=== PATIENT | male | born 1955 | race Caucasian/White ===

== ENCOUNTER 2020-09-28 06:20 | Outpatient (REF) | payer OTHER, SELFPAY ==
[2020-09-28 11:48] LABS: Alanine Aminotransferase 39 U/L (0-40); Albumin Level 4.2 g/dL (3.5-5.0); Alkaline Phosphatase 68 U/L (39-117); Anion Gap 14 (12-20); Aspartate Amino Transferase 25 U/L (5-37); Bilirubin Total 0.5 mg/dL (0.0-1.0); Blood Urea Nitrogen 15 mg/dL (9-16); Calcium 9.2 mg/dL (8.4-10.2); Carbon Dioxide 27 mmol/L (22-29); Chloride 106 mmol/L (96-108); Cholesterol 219 mg/dL; Estimated Glomerular Filt Rate > 60; Glucose Fasting 89 mg/dL (60-99); HDL Cholesterol 54 mg/dL; LDL Cholesterol Calculated 142 mg/dl; Potassium 4.6 mmol/L (3.3-5.1); Sodium 142 mmol/L (135-145); Total Protein 6.8 g/dL (6.5-8.0); Triglycerides 119 mg/dL
[2020-09-28 12:31] LABS: Free T4 (Free Thyroxine) 1.02 ng/dL (0.71-1.85); Prostate Specific Antigen Scr 0.53 ng/mL (<0.05-4.0)
== END 2020-09-28 06:21 | disposition home or self-care (01) ==
LOC: HO.HMGCLDS 06:20
PROVIDERS: PCP Nurse Practitioner Family; Visit Provider Nurse Practitioner Family
DX: Z12.5 Encounter for screening for malignant neoplasm of prostate (principal); E03.9 Hypothyroidism, unspecified; E78.5 Hyperlipidemia, unspecified
CPT/HCPCS: 36415; 80053; 80061; 84153; 84439; 84443

== ENCOUNTER 2020-10-02 06:35 | Outpatient (REF) | payer OTHER, SELFPAY ==
--- NOTE | ~2020-10-02 | CT_ITS ---
EXAMINATION: CT ABDOMEN AND PELVIS WITH CONTRAST CLINICAL INFORMATION: Umbilical hernia COMPARISON: Chest CT August 2018 TECHNIQUE: Multidetector volumetric images were obtained from the superior aspect of the liver through the pubic symphysis following administration 85 mL of Omnipaque 350 intravenous contrast. Sagittal and coronal reformatted images were obtained on the technologist's workstation. Oral contrast: Yes This CT examination was performed using dose optimization techniques as appropriate, variously including the following: *Automated exposure control *Adjustment of mA and/or kV according to patient size (this includes techniques or standardized protocols for targeted exams where dose is matched to indication/reason for exam; i.e. extremities or head) *Use of iterative reconstruction technique DLP: 514 mGy-cm FINDINGS: LUNG BASES: The visualized lung bases are clear. There is elevation of the right hemidiaphragm. This is similar to previous chest CT. LIVER, GALLBLADDER, AND BILIARY TREE: The liver is normal in size, shape, and attenuation. No focal hepatic lesion or biliary ductal dilatation is present. The gallbladder is unremarkable with no evidence of radiopaque gallstones, gallbladder wall thickening, or obvious pericholecystic inflammatory changes. PANCREAS: Unremarkable. SPLEEN: Unremarkable. ADRENAL GLANDS: Unremarkable. KIDNEYS AND URETERS: The kidneys are normal in size, shape, and attenuation. No hydronephrosis, hydroureter, or calculi seen. No perinephric stranding. BLADDER: Unremarkable. GASTROINTESTINAL TRACT: The small and large bowel are unremarkable. The appendix is not identified. ABDOMINAL WALL: There is diastasis of the rectus muscles. No definite hernia is seen. LYMPH NODES: Normal. VASCULAR: Unremarkable. PELVIC VISCERA: Unremarkable. OSSEOUS STRUCTURES: Unremarkable. CT/CT abdomen pelvis w con IMPRESSION: Diastasis of the rectus muscles. No hernia seen. Elevated right hemidiaphragm similar to previous chest CT.
[2020-10-02] MEDS: iohexoL 350 MG/ML 100 ML INFUS..BTL IV (09:01)
[2020-10-02] MEDS: Barium Sulfate Oral (Mocha) 450 ML ORAL.SUSP 900 ML PO (09:02)
== END 2020-10-02 06:36 | disposition home or self-care (01) ==
LOC: HO.CT 06:35
PROVIDERS: PCP Nurse Practitioner Family; Visit Provider Nurse Practitioner Family
DX: K42.9 Umbilical hernia without obstruction or gangrene (principal); K40.90 Unilateral inguinal hernia, without obstruction or gangrene, not specified as recurrent
CPT/HCPCS: 74177; Q9967

== ENCOUNTER → 2020-10-03 13:05 | Outpatient (BNVA) | payer OTHER, SELFPAY | PROVIDERS: PCP Nurse Practitioner Family; Referring Provider Nurse Practitioner Family; Visit Provider Nurse Practitioner Family ==

== ENCOUNTER 2020-10-04 06:05 | Outpatient (REF) | payer OTHER, SELFPAY ==
[2020-10-04 12:01] LABS: C Reactive Protein 0.13 mg/dL (< or = 0.50)
[2020-10-09 14:21] LABS: Transglutaminase Ab IgG 5 U/mL; Transglutaminase IgA 1 U/mL
== END 2020-10-04 06:06 | disposition home or self-care (01) ==
LOC: HO.HMGCLDS 06:05
PROVIDERS: PCP Nurse Practitioner Family; Visit Provider Nurse Practitioner Family
DX: R14.0 Abdominal distension (gaseous) (principal); R19.7 Diarrhea, unspecified
CPT/HCPCS: 36415; 83516; 86140

== ENCOUNTER 2021-05-01 06:05 | Outpatient (REF) | payer OTHER, SELFPAY ==
[2021-05-01 11:26] LABS: MANUAL DIFF FLAG NO
[2021-05-01 11:32] LABS: Basophils Percent Auto 0.7 % (0-2); Eosinophils Absolute Auto 0.1 X10*3/uL (0.0-0.4); Eosinophils Percent Auto 1.3 % (0-4); Hematocrit 48.2 % (42.0-52.0); Hemoglobin 16.1 g/dl (14.0-18.0); Imm Gran Abs Auto 0.02 X10*3/uL (0.00-0.03); Imm Gran Pct Auto 0.4 % (0.0-0.4); Lymphocytes Absolute Auto 2.3 X10*3/uL (1.2-4.9); Lymphocytes Percent Auto 40.5 % (20-40); Mean Corpuscular HGB Conc 33.4 g/dl (31.0-36.0); Mean Corpuscular Hemoglobin 32.3 pg (27.0-33.0); Mean Corpuscular Volume 96.6 fL (80.0-98.0); Mean Platelet Volume 11.2 fL (9.4-12.4); Monocytes Absolute Auto 0.5 X10*3/uL (0.1-1.2); Neutrophils Absolute Auto 2.8 x10*3/uL (2.0-8.3); Neutrophils Percent Auto 49.1 % (45-73); Platelet Count 263 X10*3/uL (160-400); Red Blood Count 4.99 X10*6/uL (4.60-5.80); Red Cell Distribution Width 12.7 % (11.0-16.0); White Blood Count 5.6 X10*3/uL (4.8-10.8)
[2021-05-01 11:35] LABS: Appearance Urine CLEAR; Color Urine YELLOW; Glucose Urine UA NEG (NEG); Leukocyte Esterase Urine NEG (NEG); Nitrite Urine NEG (NEG); PH 6.5 (5.0-8.0); Specific Gravity - Urine 1.025 (1.005-1.025); Urine Blood NEG (NEG); Urine Ketones NEG (NEG); Urine Protein NEG (NEG-TRACE)
[2021-05-01 11:55] LABS: Alanine Aminotransferase 36 U/L (0-40); Albumin Level 4.1 g/dL (3.5-5.0); Alkaline Phosphatase 50 U/L (39-117); Anion Gap 10 (12-20); Aspartate Amino Transferase 30 U/L (5-37); Bilirubin Total 0.6 mg/dL (0.0-1.0); Blood Urea Nitrogen 14 mg/dL (9-16); Calcium 8.9 mg/dL (8.4-10.2); Carbon Dioxide 30 mmol/L (22-29); Chloride 104 mmol/L (96-108); Cholesterol 271 mg/dL; Estimated Glomerular Filt Rate 59; Glucose Fasting 95 mg/dL (60-99); HDL Cholesterol 64 mg/dL; Iron 109 mcg/dL (45-160); LDL Cholesterol Calculated 181 mg/dl; Percent Iron Saturation 29 % (15-50); Potassium 4.4 mmol/L (3.3-5.1); Sodium 140 mmol/L (135-145); Total Iron Binding Capacity 380 mcg/dL (228-428); Triglycerides 131 mg/dL; Unsaturated Iron Binding 271 ug/dL
[2021-05-01 12:04] LABS: TSH reflex Free T4 46.32 uIU/mL (0.32-4.0)
[2021-05-01 12:35] LABS: Free T4 (Free Thyroxine) 0.48 ng/dL (0.71-1.85)
[2021-05-01 12:57] LABS: Folate 14.6 ng/mL (> or = 4.0); Vitamin B12 529 pg/mL (200-900)
== END 2021-05-01 06:06 | disposition home or self-care (01) ==
LOC: HO.HMGCLDS 06:05
PROVIDERS: PCP Nurse Practitioner Family; Visit Provider Nurse Practitioner Family
DX: E78.5 Hyperlipidemia, unspecified (principal); E03.9 Hypothyroidism, unspecified; R53.83 Other fatigue
CPT/HCPCS: 36415; 80053; 80061; 81003; 82607; 82746; 83540; 84439; 84443; 85025

== ENCOUNTER 2021-10-15 06:05 | Outpatient (REF) | payer OTHER, SELFPAY ==
[2021-10-15 12:00] LABS: Alanine Aminotransferase 36 U/L (0-40); Albumin Level 4.4 g/dL (3.5-5.0); Alkaline Phosphatase 57 U/L (39-117); Anion Gap 11 (12-20); Aspartate Amino Transferase 31 U/L (5-37); Bilirubin Total 0.6 mg/dL (0.0-1.0); Blood Urea Nitrogen 13 mg/dL (9-16); Carbon Dioxide 27 mmol/L (22-29); Chloride 103 mmol/L (96-108); Estimated Glomerular Filt Rate 58; Glucose Random 107 mg/dL (60-115); Potassium 4.4 mmol/L (3.3-5.1); Sodium 137 mmol/L (135-145); Total Protein 7.4 g/dL (6.5-8.0)
[2021-10-15 12:02] LABS: TSH reflex Free T4 49.62 uIU/mL (0.32-4.0)
[2021-10-15 12:38] LABS: Free T4 (Free Thyroxine) 0.57 ng/dL (0.71-1.85)
== END 2021-10-15 06:06 | disposition home or self-care (01) ==
LOC: HO.HMGCLDS 06:05
PROVIDERS: Visit Provider Nurse Practitioner Family
DX: E03.9 Hypothyroidism, unspecified (principal)
CPT/HCPCS: 36415; 80053; 84439; 84443

== ENCOUNTER 2022-07-14 06:02 | Outpatient (REF) | payer OTHER, SELFPAY ==
[2022-07-14 11:12] LABS: MANUAL DIFF FLAG NO
[2022-07-14 11:22] LABS: Appearance Urine Clear; Color Urine Yellow; Glucose Urine UA Negative (Negative); Leukocyte Esterase Urine Negative (Negative); Nitrite Urine Negative (Negative); PH 6.5 (5.0-9.0); Specific Gravity - Urine 1.025 (1.005-1.025); Urine Blood Negative (Negative); Urine Ketones Negative (Negative); Urine Protein Negative (Neg-Trace)
[2022-07-14 11:26] LABS: Basophils Absolute Auto 0.1 X10*3/uL (0.0-0.2); Basophils Percent Auto 0.8 % (0-2); Eosinophils Absolute Auto 0.1 X10*3/uL (0.0-0.4); Eosinophils Percent Auto 1.3 % (0-4); Hematocrit 44.6 % (42.0-52.0); Hemoglobin 15.1 g/dl (14.0-18.0); Imm Gran Abs Auto 0.04 X10*3/uL (0.00-0.03); Imm Gran Pct Auto 0.7 % (0.0-0.4); Lymphocytes Absolute Auto 2.7 X10*3/uL (1.2-4.9); Lymphocytes Percent Auto 44.3 % (20-40); Mean Corpuscular HGB Conc 33.9 g/dl (31.0-36.0); Mean Corpuscular Hemoglobin 31.3 pg (27.0-33.0); Mean Corpuscular Volume 92.3 fL (80.0-98.0); Mean Platelet Volume 11.4 fL (9.4-12.4); Monocytes Absolute Auto 0.5 X10*3/uL (0.1-1.2); Monocytes Percent Auto 8.5 % (2-11); Neutrophils Absolute Auto 2.7 x10*3/uL (2.0-8.3); Neutrophils Percent Auto 44.4 % (45-73); Platelet Count 250 X10*3/uL (160-400); Red Blood Count 4.83 X10*6/uL (4.60-5.80); Red Cell Distribution Width 13.2 % (11.0-16.0)
[2022-07-14 12:00] LABS: Alanine Aminotransferase 50 U/L (0-40); Albumin Level 4.4 g/dL (3.5-5.0); Alkaline Phosphatase 57 U/L (39-117); Anion Gap 11 (12-20); Aspartate Amino Transferase 29 U/L (5-37); Bilirubin Total 0.6 mg/dL (0.0-1.0); Blood Urea Nitrogen 15 mg/dL (9-16); Calcium 9.2 mg/dL (8.4-10.2); Carbon Dioxide 27 mmol/L (22-29); Chloride 109 mmol/L (96-108); Cholesterol 332 mg/dL; Estimated Glomerular Filt Rate 60; Glucose Fasting 102 mg/dL (60-99); HDL Cholesterol 59 mg/dL; LDL Cholesterol Calculated 231 mg/dl; Potassium 4.4 mmol/L (3.3-5.1); Sodium 143 mmol/L (135-145); Total Protein 7.2 g/dL (6.5-8.0); Triglycerides 213 mg/dL
[2022-07-14 12:01] LABS: Prostate Specific Antigen Scr 0.45 ng/mL (<0.05-4.0)
[2022-07-14 12:46] LABS: Free T4 (Free Thyroxine) 0.66 ng/dL (0.71-1.85)
== END 2022-07-14 06:03 | disposition home or self-care (01) ==
LOC: HO.HMGCLDS 06:02
PROVIDERS: PCP Nurse Practitioner Family; Visit Provider Nurse Practitioner Family
DX: Z00.00 Encounter for general adult medical examination without abnormal findings (principal); Z12.5 Encounter for screening for malignant neoplasm of prostate; E78.5 Hyperlipidemia, unspecified; E03.9 Hypothyroidism, unspecified
CPT/HCPCS: 36415; 80053; 80061; 81003; 84153; 84439; 84443; 85025

== ENCOUNTER 2022-07-25 10:23 | Outpatient (REF) | payer OTHER, SELFPAY ==
--- NOTE | ~2022-07-25 | US_ITS ---
EXAMINATION: US ABDOMEN COMPLETE CLINICAL INFORMATION: Abnormal levels of other serum enzymes. COMPARISON: CT abdomen and pelvis 10/02/2020. TECHNIQUE: Real-time imaging of the abdominal viscera. FINDINGS: PANCREAS: Normal. ABDOMINAL AORTA: The proximal, mid, and distal segments are normal in caliber. INFERIOR VENA CAVA: Visualized portions are normal. LIVER: The liver is normal in size. The liver contour is normal. There is diffuse increased liver parenchymal echogenicity, consistent with infiltrative hepatocellular disease. No focal hepatic lesion. There is no intrahepatic biliary duct dilatation seen. GALLBLADDER: Normal. The gallbladder is physiologically distended without evidence of stones, sludge, polyps, wall thickening or pericholecystic fluid. COMMON BILE DUCT: Normal in caliber measuring 0.4 cm in diameter. RIGHT KIDNEY: Normal. No hydronephrosis. No renal calculi or focal parenchymal lesions. The kidney measures 11.3 cm in maximum dimension. LEFT KIDNEY: Normal. No hydronephrosis. No renal calculi or focal parenchymal lesions. The kidney measures 10.3 cm in maximum dimension. SPLEEN: Normal. The spleen measures 9.4 cm in maximum dimension. FREE FLUID: None. US/US abdomen complete IMPRESSION: Increased hepatic echogenicity which can be seen in the setting of hepatic steatosis or underlying liver disease.
== END 2022-07-25 10:24 | disposition home or self-care (01) ==
LOC: HO.HMGCX 10:23
PROVIDERS: PCP Nurse Practitioner Family; Visit Provider Nurse Practitioner Family
DX: R74.8 Abnormal levels of other serum enzymes (principal)
CPT/HCPCS: 76700

== ENCOUNTER 2022-10-18 06:48 | Outpatient (REF) | payer OTHER, SELFPAY ==
[2022-10-18 11:37] LABS: Alanine Aminotransferase 56 U/L (0-40); Albumin Level 4.3 g/dL (3.5-5.0); Alkaline Phosphatase 59 U/L (39-117); Anion Gap 16 (12-20); Aspartate Amino Transferase 30 U/L (5-37); Bilirubin Total 0.6 mg/dL (0.0-1.0); Blood Urea Nitrogen 13 mg/dL (9-16); Calcium 9.2 mg/dL (8.4-10.2); Carbon Dioxide 22 mmol/L (22-29); Chloride 104 mmol/L (96-108); Cholesterol 321 mg/dL; Estimated Glomerular Filt Rate > 60; Glucose Fasting 116 mg/dL (60-99); HDL Cholesterol 61 mg/dL; LDL Cholesterol Calculated 204 mg/dl; Potassium 4.1 mmol/L (3.3-5.1); Sodium 138 mmol/L (135-145); Total Protein 7.3 g/dL (6.5-8.0); Triglycerides 280 mg/dL
[2022-10-18 11:53] LABS: TSH reflex Free T4 39.57 uIU/mL (0.32-4.0)
[2022-10-18 12:28] LABS: Free T4 (Free Thyroxine) < 0.42 ng/dL (0.71-1.85)
[2022-10-20 05:05] LABS: HBc Num1 0.09 S/CO (0.00-0.79); HBsAGNum1 0.29 S/CO (0.00-0.99); Hepatitis A Antibody IgM 0.14 Index (0-0.79); Hepatitis B Core Antibody Nonreactive (Nonreactive); Hepatitis B Surface Antigen Negative (Negative); ~HepC Num1 0.12 S/CO (0.00-0.79); ~Hepatitis A Antibody IgM Nonreactive (Nonreactive); ~Hepatitis C Antibody Nonreactive (Nonreactive)
[2022-10-20 05:50] LABS: ~Hepatitis B Surface Antibody NONREACTIVE (Nonreactive)
== END 2022-10-18 06:49 | disposition home or self-care (01) ==
LOC: HO.HMGCLDS 06:48
PROVIDERS: PCP Nurse Practitioner Family; Visit Provider Nurse Practitioner Family
DX: E03.9 Hypothyroidism, unspecified (principal); R74.8 Abnormal levels of other serum enzymes; E78.5 Hyperlipidemia, unspecified
CPT/HCPCS: 36415; 80053; 80061; 84439; 84443; 86704; 86706; 86709; 86803; 87340

== ENCOUNTER 2022-11-11 10:59 | Outpatient (AMB) | payer OTHER, SELFPAY ==
--- NOTE | 2022-11-11 10:48 | A.OFFPC_ITS ---
Intake Visit Reasons: Hypothyroidism (Adult) [phone] Allergies Nogpibh-KGY-WzK Reductase Inhibitor [Hgqkepg-Cdi-Dhj Reductase Inhibitor] Adverse Reaction (Mild, Verified 07/08/22 11:35) joint pains Tobacco use date assessed: 07/08/22 HPI Hypothyroidism (Adult) [phone] HPI Details Hypothyroid: Pt is currently taking levothyroxine 250mcg daily. He is compliant with his medications. TSH remains elevated. Will increase levothyroxine to 275mcg daily. Will order thyroid US and refer to endo. Denies fever, chills, and dizziness. [facility] Family History Father Diabetes Social History Housing: House Patient Tobacco Use Status: Former Tobacco user Years Smoked: quit smoking x1 month e-Cigarette/Vaping Use: Never Used Second Hand Smoke Exposure: No service: Yes Current occupational status: employed Current occupation: [employer] Current occupational exposures/hazards: No Cognitive needs: No Hearing needs: No Vision needs: No Questionnaire Thrive Questionnaire Date Thrive assessed: 07/08/22 DHRUV-7 AMB Questionnaire DHRUV-7 Date DHRUV - 7 assessed: 07/08/22 Source: Developed by Drs. Pipo Tran, Yulia Javed, Joe Townsend and colleagues, with an educational kem from [employer]. Review of Systems Const Reports as per HPI Physical exam (Primary Care) Tobacco/Smoking Status: Tobacco use Status Tobacco use date assessed 07/08/22 11/11/22 10:48 Patient Tobacco Use Status Former Tobacco user 11/11/22 10:48 e-Cigarette/Vaping Use Never Used 11/11/22 10:48 Thrive Assessment: Date of Thrive Assessment Date Thrive assessed 07/08/22 11/11/22 10:48 Const General: cooperative Orientation/consciousness: patient oriented x3 Neuro General: patient oriented x3 Psych Appearance: grossly normal Mental Status: mental status grossly normal Speech and movement: Clear speech present Affect: normal affect Attitude: cooperative Thought process: Normal thought process present Thought content: Normal thought content present Insight: Good insight present (Psych) Judgement: Good judgement present (Psych) Telehealth Telehealth Location of provider rendering services: practice address Location of patient: address on file Patient Identification confirmed using: Name, : Yes Telehealth method: video Patient verbally consented to treatment: Yes Patient verbally consented to billing insurance company: Yes Patient informed of any privacy concerns related to visit: Yes Minutes spent on Phone/Video with Pt.: 10 Assessment and Plan Assessment & Plan (1) Elevated TSH: Code(s): R79.89 - Other specified abnormal findings of blood chemistry Plan: Increased levothyroxine, US ordered, referred to endo Plan The patient agreed to the use of a medical specialist for this encounter. Scribed for MARTA Jones by Bernice Thao medical specialist, on 11/11/2022 at 10:50 EST. Orders: Orders Comprehensive Met. Panel 6 Weeks R79.89 - Other specified abnormal findings of blood chemistry TSH reflex Free T4 6 Weeks R79.89 - Other specified abnormal findings of blood chemistry Referrals Endocrinology Referral R79.89 - Other specified abnormal findings of blood chemistry Medications: Changed From levothyroxine Take 50 mcg with 200 mcg of levothyroxine daily 50 mcg PO DAILY 90 tabs 0RF To levothyroxine Take 75 mcg with 200 mcg of levothyroxine daily 75 mcg PO DAILY 90 tabs 0RF Coding Level of Care Code Tele Est Pt Level 3 (31085) Diagnoses Elevated TSH R79.89
== END 2022-11-11 15:14 | disposition home or self-care (01) ==
LOC: HO.HMGC 11:00
PROVIDERS: PCP Nurse Practitioner Family; Visit Provider Nurse Practitioner Family
DX: R79.89 Other specified abnormal findings of blood chemistry (principal)
CPT/HCPCS: 99213

== ENCOUNTER 2022-11-21 15:15 | Outpatient (REF) | payer OTHER, SELFPAY ==
--- NOTE | ~2022-11-21 | US_ITS ---
EXAMINATION: US THYROID CLINICAL INFORMATION: Elevated thyroid stimulating hormone. COMPARISON: CT neck with intravenous contrast dated 05/10/2010. TECHNIQUE: Linear transducer grayscale and color Doppler examination with attention to the region of the thyroid. FINDINGS: SIZE: Measurements of the thyroid lobes and nodules are given in sagittal, anteroposterior and transverse dimensions respectively. Right Thyroid Lobe: 4.5 x 1.9 x 1.4 cm, volume 6.3 mL. Parenchyma: The gland echotexture is heterogeneous. Thyroid vascularity is normal. Left Thyroid Lobe: 4.7 x 1.4 x 1.1 cm, volume 3.8 mL. Parenchyma: The gland echotexture is heterogeneous. Thyroid vascularity is normal. Isthmus: 0.20 cm in maximum AP dimension. No focal thyroid nodule is seen. NODES: No lymphadenopathy is seen in the tissue surrounding the thyroid gland. US/US thyroid IMPRESSION: No suspicious thyroid nodules identified. Diffusely heterogeneous thyroid gland. ACR TI-RADS RECOMMENDATION REFERENCE: Ultrasound-guided fine-needle aspiration, followup ultrasound, no further follow up. * TR1 (0 point) and TR2 (2 points): No FNA or follow up. * TR3 (3 points): FNA if more than or equal to 2.5 cm in maximum dimension, followup ultrasound in 1, 3 and 5 years if 1.5 to 2.4 cm in maximum dimension. * TR4 (4-6 points): FNA if more than or equal to 1.5 cm in maximum dimension, followup ultrasound in 1, 2, 3 and 5 years if 1 to 1.4 cm in maximum dimension. * TR5 (more than or equal to 7 points): FNA if more than or equal to 1 cm in maximum dimension, followup ultrasound every year for 5 years if 0.5 to 0.9 cm in maximum dimension. * TR3, TR4 or TR5 nodules that are below the size threshold for followup receive no follow up.
== END 2022-11-21 15:16 | disposition home or self-care (01) ==
LOC: HO.HMGCX 15:15
PROVIDERS: PCP Nurse Practitioner Family; Visit Provider Nurse Practitioner Family
DX: R79.89 Other specified abnormal findings of blood chemistry (principal)
CPT/HCPCS: 76536

== ENCOUNTER 2023-02-11 08:32 | Outpatient (REF) | payer OTHER, SELFPAY ==
--- NOTE | ~2023-02-11 | XR_ITS ---
EXAMINATION: XR CHEST CLINICAL INFORMATION: Nicotine dependence. COMPARISON: Chest CT 08/20/2018 TECHNIQUE: 2 views of the chest were obtained. FINDINGS: The lungs are moderately expanded. The right hemidiaphragm remains elevated. No focal consolidation. No pleural effusion. Cardiac silhouette is within normal limits. XR/XR chest 2V IMPRESSION: No acute abnormality.
[2023-02-11 11:15] LABS: MANUAL DIFF FLAG NO
[2023-02-11 11:20] LABS: Appearance Urine Clear; Color Urine Yellow; Glucose Urine UA Negative (Negative); Leukocyte Esterase Urine Negative (Negative); Nitrite Urine Negative (Negative); PH 5.5 (5.0-9.0); Urine Blood Negative (Negative); Urine Ketones Negative (Negative); Urine Protein Negative (Neg-Trace)
[2023-02-11 11:38] LABS: Basophils Percent Auto 0.4 % (0-2); Eosinophils Absolute Auto 0.1 X10*3/uL (0.0-0.4); Eosinophils Percent Auto 2.3 % (0-4); Hematocrit 45.4 % (42.0-52.0); Hemoglobin 15.4 g/dl (14.0-18.0); Imm Gran Abs Auto 0.04 X10*3/uL (0.00-0.03); Imm Gran Pct Auto 0.7 % (0.0-0.4); Lymphocytes Absolute Auto 2.2 X10*3/uL (1.2-4.9); Lymphocytes Percent Auto 39.1 % (20-40); Mean Corpuscular HGB Conc 33.9 g/dl (31.0-36.0); Mean Corpuscular Hemoglobin 29.4 pg (27.0-33.0); Mean Corpuscular Volume 86.8 fL (80.0-98.0); Mean Platelet Volume 11.3 fL (9.4-12.4); Monocytes Absolute Auto 0.5 X10*3/uL (0.1-1.2); Monocytes Percent Auto 8.6 % (2-11); Neutrophils Absolute Auto 2.7 x10*3/uL (2.0-8.3); Neutrophils Percent Auto 48.9 % (45-73); Platelet Count 284 X10*3/uL (160-400); Red Blood Count 5.23 X10*6/uL (4.60-5.80); Red Cell Distribution Width 12.4 % (11.0-16.0); White Blood Count 5.6 X10*3/uL (4.8-10.8)
[2023-02-11 11:47] LABS: Alanine Aminotransferase 55 U/L (0-40); Alkaline Phosphatase 71 U/L (39-117); Anion Gap 13 (12-20); Aspartate Amino Transferase 30 U/L (5-37); Bilirubin Total 0.5 mg/dL (0.0-1.0); Blood Urea Nitrogen 10 mg/dL (9-16); Calcium 9.4 mg/dL (8.4-10.2); Carbon Dioxide 25 mmol/L (22-29); Chloride 105 mmol/L (96-108); Estimated Glomerular Filt Rate > 60; Glucose Random 116 mg/dL (60-115); Potassium 4.2 mmol/L (3.3-5.1); Sodium 139 mmol/L (135-145); Total Protein 7.2 g/dL (6.5-8.0)
[2023-02-11 12:08] LABS: TSH reflex Free T4 < 0.01 uIU/mL (0.32-4.0)
[2023-02-11 12:40] LABS: Free T4 (Free Thyroxine) 1.11 ng/dL (0.71-1.85)
[2023-02-13 15:03] LABS: A. Phagocytphilium DNA,RT-PCR NOT DETECTED (NOT DETECTED); Babesia Microti DNA, RT-PCR NOT DETECTED (NOT DETECTED); Borrelia Miyamotoi,DNA RT-PCR NOT DETECTED (NOT DETECTED); E.Chaffeensis DNA RT-PCR NOT DETECTED (NOT DETECTED); Lyme(Borrelia ssp)DNA RT-PCR NOT DETECTED (NOT DETECTED)
== END 2023-02-11 08:33 | disposition home or self-care (01) ==
LOC: HO.HMGCX 08:32
PROVIDERS: PCP Nurse Practitioner Family; Visit Provider Nurse Practitioner Family
DX: R79.89 Other specified abnormal findings of blood chemistry (principal); M79.10 Myalgia, unspecified site; R06.02 Shortness of breath; F17.200 Nicotine dependence, unspecified, uncomplicated
CPT/HCPCS: 36415; 71046; 80053; 81003; 82550; 84439; 84443; 85025; 87468; 87469; 87478; 87484; 87798

== ENCOUNTER 2023-02-11 08:58 | Outpatient (AMB) | payer OTHER, SELFPAY ==
--- NOTE | 2023-02-11 07:06 | MHC.PC.OV ---
Intake Visit Reasons: Discuss thyroid [phone] Allergies Qvghpfx-BYD-OlV Reductase Inhibitor [Jiaqmpf-Pam-Bnr Reductase Inhibitor] Adverse Reaction (Mild, Verified 07/08/22 11:35) joint pains Medication List - Last Reconciled 02/11/23 by PEREZ Pham atorvastatin 20 mg PO BEDTIME coenzyme Q10 100 mg PO DAILY levothyroxine 200 mcg PO DAILY 90 days levothyroxine 37.5 mcg PO DAILY Tobacco use date assessed: 07/08/22 HPI Discuss thyroid [phone] HPI Details Pt c/o ongoing fatigue, chills, shortness of breath, and body aches for several months, and getting worse. He has a hx of elevated TSH and is currently taking levothyroxine 200mcg. Pt saw endo recently and went from hypothyroid to hyperthyroid. Pt did not like the life enrichment assistant he saw, will refer to a different provider. Pt reports that his symptoms are causing him to miss work frequently. He would like short term disability paperwork filled out, will gladly fill this out. Will order chest XR due to shortness of breath, though I believe this is related to his thyroid. Pt does smoke. Denies fever, dizziness, and chest pain. [facility] Family History Father Diabetes Social History Housing: House Patient Tobacco Use Status: Former Tobacco user Years Smoked: quit smoking x1 month e-Cigarette/Vaping Use: Never Used Second Hand Smoke Exposure: No service: Yes Current occupational status: employed Current occupation: [employer] Current occupational exposures/hazards: No Cognitive needs: No Hearing needs: No Vision needs: No Questionnaire Thrive Questionnaire Date Thrive assessed: 07/08/22 DHRUV-7 AMB Questionnaire DHRUV-7 Date DHRUV - 7 assessed: 07/08/22 Source: Developed by Drs. Pipo Tran, Yulia Javed, Joe Townsend and colleagues, with an educational kem from [employer]. Review of Systems Const Reports as per HPI Physical exam (Primary Care) Tobacco/Smoking Status: Tobacco use Status Tobacco use date assessed 07/08/22 02/11/23 07:07 Patient Tobacco Use Status Former Tobacco user 02/11/23 07:07 e-Cigarette/Vaping Use Never Used 02/11/23 07:07 Thrive Assessment: Date of Thrive Assessment Date Thrive assessed 07/08/22 02/11/23 07:07 Const General: cooperative Orientation/consciousness: patient oriented x3 Neuro General: patient oriented x3 Psych Appearance: grossly normal Mental Status: mental status grossly normal Speech and movement: Normal speech and movement present Affect: normal affect Attitude: cooperative Thought process: Normal thought process present Thought content: Normal thought content present Insight: Good insight present (Psych) Judgement: Good judgement present (Psych) Telehealth Telehealth Location of provider rendering services: practice address Location of patient: address on file Patient Identification confirmed using: Name, : Yes Telehealth method: video Patient verbally consented to treatment: Yes Patient verbally consented to billing insurance company: Yes Patient informed of any privacy concerns related to visit: Yes Minutes spent on Phone/Video with Pt.: 15 Assessment and Plan Assessment & Plan (1) Low TSH level: Code(s): R79.89 - Other specified abnormal findings of blood chemistry Plan: Labs ordered, referred to endo (2) Elevated TSH: Code(s): R79.89 - Other specified abnormal findings of blood chemistry Plan: Labs ordered, referred to endo (3) Smoking: Code(s): F17.200 - Nicotine dependence, unspecified, uncomplicated Plan: Chest XR ordered (4) SOB (shortness of breath): Code(s): R06.02 - Shortness of breath Plan: Chest XR ordered (5) Muscle ache: Code(s): M79.10 - Myalgia, unspecified site Plan: Labs ordered Plan The patient agreed to the use of a medical record clerk for this encounter. Scribed for JOSE Jones- by Bernice Thao medical record clerk, on 02/11/2023 at 07:05 EST. Orders: Orders TSH reflex Free T4 Today R79.89 - Other specified abnormal findings of blood chemistry UA CC w/rflx Micro + Cult Today R7.89 - Other specified abnormal findings of blood chemistry XR chest 2V Today F17.200 - Nicotine dependence, unspecified, uncomplicated, R06.02 - Shortness of breath Tick-borne Disease Molecular Today M79.10 - Myalgia, unspecified site Comprehensive Met. Panel Today R7.89 - Other specified abnormal findings of blood chemistry Complete Blood Count Auto Diff Today R79.89 - Other specified abnormal findings of blood chemistry Creatine Kinase Total Today M79.10 - Myalgia, unspecified site Referrals Thoracic Surgery Referral F17.200 - Nicotine dependence, unspecified, uncomplicated Endocrinology Referral R79.89 - Other specified abnormal findings of blood chemistry Coding Level of Care Code Tele Est Pt Level 3 (02065) Diagnoses Low TSH level R79.89 Elevated TSH R79.89 Smoking F17.200 SOB (shortness of breath) R06.02 Muscle ache M79.10
== END 2023-02-11 11:21 | disposition home or self-care (01) ==
LOC: HO.HMGC 08:58
PROVIDERS: PCP Nurse Practitioner Family; Visit Provider Nurse Practitioner Family
DX: R79.89 Other specified abnormal findings of blood chemistry (principal); F17.200 Nicotine dependence, unspecified, uncomplicated; R06.02 Shortness of breath; M79.10 Myalgia, unspecified site
CPT/HCPCS: 99213

== ENCOUNTER 2023-03-05 11:20 | Outpatient (AMB) | payer OTHER, SELFPAY ==
--- NOTE | 2023-03-05 11:22 | A.OFFPC_ITS ---
Vital Signs 03/05/23 11:27 Height 5 ft 11 in Weight 232 lb BMI 32.4 BP 140/100 H Blood Pressure Location Rt brachial Position Sitting Pulse 95 Pulse Source Pulse Oximeter Pulse Oximetry (%) 96 Oxygen Delivery Method Room Air Intake Visit Reasons: Annual PE Intake Note: Patient here for physical exam. no new issues. Allergies Xvuvfwg-SPV-AvO Reductase Inhibitor [Smxfrce-Mby-Qud Reductase Inhibitor] Adverse Reaction (Mild, Verified 03/05/23 11:27) joint pains Medication List - Last Reconciled 03/05/23 by MARTA Pham levothyroxine 200 mcg PO DAILY 90 days levothyroxine 37.5 mcg (1/2 x 75 mcg) PO DAILY 90 days Tobacco use date assessed: 03/05/23 Fall risk assessment: No Falls in past year Last assessed Fall Risk: 03/05/23 Dental Screening Dental Screen Date: 03/05/23 Did you have a dental visit in the last 12 months?: No Did you have a dental problem in the last 6 months where you did not have access to dental care?: No Was dental information given to patient?: Patient has dentist HPI Annual PE HPI Details Pt is here for a PE. Will order labs. PSA is up to date. Denies dribbling with urination, weak stream, and frequent nocturia. Pt saw GI previously and was supposed to have a colonoscopy but he has not. Will reach out to GI office to have this scheduled. Pt's TSH has been fluctuating between high and low. He was referred to endo, saw one provider already, wants to see a different provider, and has an appointment in June with a new provider. march 18 LDCT scheduled, pt has not smoked for over 2 years now. Pt c/o muscle aches and fatigue. Will order labs and refer for sleep study. elevated BP: will have him take his BP at home, drop off values in approx 3 weeks. Pt is currently out on disability due to his fatigue, body aches, myalgias. [facility] Family History Father Diabetes Social History Housing: House Patient Tobacco Use Status: Former Tobacco user Years Smoked: quit smoking x1 month e-Cigarette/Vaping Use: Never Used Second Hand Smoke Exposure: No service: Yes Current occupational status: employed Current occupation: [employer] Current occupational exposures/hazards: No Cognitive needs: No Hearing needs: No Vision needs: No Questionnaire Thrive Questionnaire Date Thrive assessed: 07/08/22 AUDIT C Alcohol Use Questionnaire (AUDIT-C) 1. How often do you have a drink containing alcohol?: Monthly or less 2. How many drinks containing alcohol do you have on a typical day when you are drinking?: 1 or 2 3. How often do you have six or more drinks on one occasion?: Never Total Score: 1 Score Reviewed/Action Taken: No DHRUV-7 AMB Questionnaire DHRUV-7 Date DHRUV - 7 assessed: 07/08/22 Source: Developed by Drs. Pipo Tran, Yulia Javed, Joe Townsend and colleagues, with an educational kem from [employer]. Review of Systems Const Denies chills and Denies fever(s) Eyes Denies blurry vision ENT Denies vertigo, Denies dizziness and Denies sore throat Card Denies chest pain at rest, Denies chest pain with activity, Denies diaphoresis, Denies dyspnea and Denies dyspnea on exertion Resp Denies cough, Denies dyspnea, Denies dyspnea on exertion and Denies wheezing GI Denies abdominal pain, Denies melena, Denies hematochezia, Denies constipation, Denies diarrhea and Denies loose stools Denies hematuria Musc Denies numbness and Denies tingling Skin/Breast Denies lesions Neuro Denies vertigo, Denies dizziness, Denies numbness and Denies tingling Psych Denies anxiety, Denies depression, Denies homicidal ideation, Denies suicidal ideation and Denies other (substance abuse) Aller/Immun Denies wheezing Physical exam (Primary Care) Vital Signs: Last Vital Signs Pulse 95 03/05/23 11:27 BP 140/100 H 03/05/23 11:27 Pulse Ox 96 03/05/23 11:27 Oxygen Delivery Method Room Air 03/05/23 11:27 BMI result Body Mass Index 32.4 Tobacco/Smoking Status: Tobacco use Status Tobacco use date assessed 03/05/23 03/05/23 11:32 Patient Tobacco Use Status Former Tobacco user 03/05/23 11:24 e-Cigarette/Vaping Use Never Used 03/05/23 11:24 Thrive Assessment: Date of Thrive Assessment Date Thrive assessed 07/08/22 03/05/23 11:24 Const General: cooperative Nutritional Appearance: well nourished Orientation/consciousness: patient oriented x3 HENMT Head: Yes normal to inspection, Yes normocephalic and Yes atraumatic Ears: TM's normal bilaterally Eyes General: appearance normal, both eyes and all related structures Alignment and Position: alignment normal and position normal Neck Neck: Yes normal visual inspection and Yes no lymphadenopathy Thyroid: Thyroid normal Resp Effort & Inspection: normal respiratory effort Auscultation: clear to auscultation bilaterally Cardio Rate: regular rate Rhythm: regular rhythm Heart sounds: S1 normal heart sound present, S2 normal heart sound present and no murmurs GI Palpation (GI): Soft to palpation and nontender Auscultation: normal bowel sounds Male General Exam: Yes normal external exam Penis: normal penis Scrotum: scrotum normal, testes descended bilaterally and no inguinal hernias Testes: no testicular mass Skin Rashes: no rashes Neuro General: patient oriented x3, moves all extremities, no focal motor deficits and deep tendon reflexes 2+ bilaterally Romberg Test: Negative Psych Appearance: grossly normal Mental Status: mental status grossly normal Speech and movement: Normal speech and movement present Affect: normal affect Attitude: cooperative Thought process: Normal thought process present Thought content: Normal thought content present Insight: Good insight present (Psych) Judgement: Good judgement present (Psych) Assessment and Plan Assessment & Plan (1) Physical exam: Code(s): Z00.00 - Encounter for general adult medical examination without abnormal findings Plan: Labs ordered (2) Muscle ache: Code(s): M79.10 - Myalgia, unspecified site Plan: Labs ordered (3) Fatigue: Code(s): R53.83 - Other fatigue Plan: Labs ordered, referred to sleep medicine Plan The patient agreed to the use of a medical office technician for this encounter. Scribed for MARTA Jones by Bernice Thao medical office technician, on 03/05/2023 at 11:50 EST. Orders: Orders TSH reflex Free T4 Today Z00.00 - Encounter for general adult medical examination without abnormal findings UA CC w/rflx Micro + Cult Today Z00.00 - Encounter for general adult medical examination without abnormal findings RUEL Reflex Titer and Pattern Today M79.10 - Myalgia, unspecified site, R53.83 - Other fatigue Complete Blood Count Auto Diff Today Z00.00 - Encounter for general adult medical examination without abnormal findings Comprehensive Nathalie. Panel Fast Today Z00.00 - Encounter for general adult medical examination without abnormal findings Lipid Panel Today Z00.00 - Encounter for general adult medical examination without abnormal findings Erythrocyte Sedimentation Rate Today M79.10 - Myalgia, unspecified site C Reactive Protein Today M79.10 - Myalgia, unspecified site Sjogren's Antibodies Today M79.10 - Myalgia, unspecified site, R53.83 - Other fatigue Referrals Sleep Medicine Referral R53.83 - Other fatigue Medications: Changed From levothyroxine 37.5 mcg PO DAILY To levothyroxine 37.5 mcg (1/2 x 75 mcg) PO DAILY 90 days 45 tabs 0RF From levothyroxine 37.5 mcg (1/2 x 75 mcg) PO DAILY 90 days 45 tabs 0RF To levothyroxine take with 200mcg for a total of 237.5mcg 37.5 mcg (1/2 x 75 mcg) PO DAILY 90 days 45 tabs 0RF Coding Level of Care Code Est Pt Prev Care >65y(64093) Diagnoses Physical exam Z00.00 Muscle ache M79.10 Fatigue R53.83
[2023-03-05 11:27] VITALS: BP 140/100; PULSE 95; O2SAT 96; BMI 32.4
== END 2023-03-05 13:04 | disposition home or self-care (01) ==
PROVIDERS: PCP Nurse Practitioner Family; Visit Provider Nurse Practitioner Family
DX: Z00.00 Encounter for general adult medical examination without abnormal findings (principal); M79.10 Myalgia, unspecified site; R53.83 Other fatigue
CPT/HCPCS: 99397

== ENCOUNTER 2023-04-13 08:21 | Outpatient (AMB) | payer BC, SELFPAY ==
--- NOTE | 2023-04-13 08:30 | MHC.OFFVIS ---
Intake Vital Signs 04/13/23 08:31 Height 5 ft 11 in Weight 230 lb BMI 32.1 BP 138/61 Blood Pressure Location Lt brachial Position Sitting Pulse 88 Intake Visit Reasons: Colonoscopy screening Intake Note: Patient follow up for 2nd pre colonoscopy Patient denies any GI issues. 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 male here today for pre colonoscopy screening.? Patient was sent to us by his PCP.? ?Patient had colonoscopy about 6 years ago. [facility] stefanypt[facility] prep and was told to return in 3 years. Seen 2 years ago for pre colonoscopy screening, however never booked the procedure. ??Patient denies any gastrointestinal symptoms in the past or at present.? Denies any personal or family history of gastrointestinal disease, colon polyps, or cancer.? Denies history of difficulty with sedation or anesthesia in the past.? Negative for history of sleep apnea.? Denies any history of cardiac, renal, pulmonary, or hepatic disease.?? No history of infectious ?diseases like hepatitis A, B, C, HIV or tuberculosis.? Patient is not on any anticoagulation therapy PFSH Family History Father Diabetes Social History Housing: House Patient Tobacco Use Status: Former Tobacco user Years Smoked: quit smoking x1 month e-Cigarette/Vaping Use: Never Used Second Hand Smoke Exposure: No service: Yes Current occupational status: employed Current occupation: [employer] Current occupational exposures/hazards: No Cognitive needs: No Hearing needs: No Vision needs: No Review of Systems Const Denies weight gain and Denies weight loss ENT Reports no additional complaints, Denies dysphagia and Denies odynophagia Card Reports no additional complaints Resp Reports no additional complaints GI Denies abdominal pain, Denies belching, Denies melena, Denies bloating, Denies change in bowel habits, Denies dysphagia, Denies excessive flatus, Denies dyspepsia, Denies heartburn, Denies diarrhea, Denies loose stools, Denies nausea, Denies odynophagia and Denies vomiting Reports no additional complaints Musc Reports no additional complaints Neuro Reports no additional complaints Psych Reports no additional complaints Endo Reports no additional complaints Physical Exam Vital Signs: Last Vital Signs Pulse 88 04/13/23 08:31 BP 138/61 04/13/23 08:31 BMI result Body Mass Index 32.1 Const General: healthy appearing, no acute distress and well developed Nutritional Appearance: obese Orientation/consciousness: patient oriented x3 HEENT Head: Yes normal to inspection, Yes normocephalic and Yes atraumatic Face and sinus: Yes normal facial exam Mouth: Normal oral and palatal mucosa present Throat: Yes posterior oropharynx normal, Yes tonsils normal and Yes uvula midline Eyes General: appearance normal, both eyes and all related structures Neck Neck: Yes normal visual inspection, Yes full ROM and Yes trachea midline Thyroid: Thyroid normal Resp Effort & Inspection: normal respiratory effort, able to speak in complete sentences, no tracheal deviation and symmetric chest movement Auscultation: clear to auscultation bilaterally Cardio Rate: regular rate GI Inspection: Yes normal to inspection, No distended and Yes obesity Palpation (GI): Soft to palpation, not firm, nontender and No hepatosplenomegaly present Auscultation: normal bowel sounds General: Yes no CVA tenderness Back/Spine/Pelvis Back: no CVA tenderness Skin General skin exam: elasticity normal, turgor normal and dry skin Neuro General: patient oriented x3 Psych Appearance: grossly normal Mental Status: mental status grossly normal Assessment & Plan Assessment & Plan (1) Screening for colon cancer: Code(s): Z12.11 - Encounter for screening for malignant neoplasm of colon Plan Patient denies any GI, cardiac or respiratory symptoms.? Denies any issues with anesthesia in the past.? Denies any history of sleep apnea.? No history infectious diseases in the past or present.? Not on any anticoagulation therapy.? No family or personal history of colon cancer or polyps.? Patient denies melena, hematochezia, unintentional weight loss or ribbon like stools.? Discussed at length the pre-procedure,? prep, diet & medications as well as what to expect prior, during and after the procedure.?? Stressed the importance of good bowel prep. ?Recommended the use of Vaseline or Calmoseptine OTC & baby wipes with bowel movements to promote comfort.? ?Patient verbalizes understanding and agrees to plan of care.? He was given the opportunity to ask questions and all questions answered.? We will see him after the procedure.? Coding Level of Care Code Est Pt Level 3 (33270) Diagnoses Screening for colon cancer Z12.11 Time Spent (min) 30 Comment 20 minutes spent with patient and additional 10 minutes spent reviewing his records
[2023-04-13 08:31] VITALS: BP 138/61; PULSE 88; BMI 32.1
== END 2023-04-13 09:15 | disposition home or self-care (01) ==
PROVIDERS: PCP Nurse Practitioner Family; Visit Provider Nurse Practitioner Family
DX: Z01.818 Encounter for other preprocedural examination (principal); Z12.11 Encounter for screening for malignant neoplasm of colon
CPT/HCPCS: S0285

== ENCOUNTER → 2023-04-13 08:21 | Outpatient (BNVA) | payer OTHER, SELFPAY | PROVIDERS: PCP Nurse Practitioner Family; Visit Provider Nurse Practitioner Family ==

== ENCOUNTER 2023-05-07 10:28 | Outpatient (REF) | payer BC, SELFPAY ==
[2023-05-07 13:12] LABS: MANUAL DIFF FLAG NO
[2023-05-07 13:24] LABS: Basophils Percent Auto 0.5 % (0-2); Eosinophils Absolute Auto 0.1 X10*3/uL (0.0-0.4); Eosinophils Percent Auto 1.6 % (0-4); Hematocrit 50.8 % (42.0-52.0); Hemoglobin 17.5 g/dl (14.0-18.0); Imm Gran Abs Auto 0.05 X10*3/uL (0.00-0.03); Imm Gran Pct Auto 0.8 % (0.0-0.4); Lymphocytes Absolute Auto 2.4 X10*3/uL (1.2-4.9); Lymphocytes Percent Auto 37.8 % (20-40); Mean Corpuscular HGB Conc 34.4 g/dl (31.0-36.0); Mean Corpuscular Hemoglobin 29.2 pg (27.0-33.0); Mean Corpuscular Volume 84.7 fL (80.0-98.0); Monocytes Absolute Auto 0.6 X10*3/uL (0.1-1.2); Monocytes Percent Auto 8.9 % (2-11); Neutrophils Absolute Auto 3.2 x10*3/uL (2.0-8.3); Neutrophils Percent Auto 50.4 % (45-73); Platelet Count 313 X10*3/uL (160-400); Red Cell Distribution Width 13.2 % (11.0-16.0); White Blood Count 6.4 X10*3/uL (4.8-10.8)
[2023-05-07 13:40] LABS: Appearance Urine Clear; Color Urine Yellow; Glucose Urine UA Negative (Negative); Leukocyte Esterase Urine Negative (Negative); Nitrite Urine Negative (Negative); Specific Gravity - Urine 1.025 (1.005-1.025); Urine Blood Negative (Negative); Urine Ketones Negative (Negative); Urine Protein Trace mg/dL (Neg-Trace)
[2023-05-07 13:50] LABS: C Reactive Protein 0.17 mg/dL (< or = 0.50)
[2023-05-07 13:57] LABS: TSH reflex Free T4 < 0.01 uIU/mL (0.32-4.0)
[2023-05-07 14:02] LABS: Erythrocyte Sedimentation Rate 8 MM/HR (0-15)
[2023-05-07 14:29] LABS: Free T4 (Free Thyroxine) 1.42 ng/dL (0.71-1.85)
[2023-05-08 19:39] LABS: Antibody to SS-A Antigen <1.0 NEG AI (<1.0 NEG); Antibody to SS-B Antigen <1.0 NEG AI (<1.0 NEG)
[2023-05-12 15:29] LABS: Anti Nuclear Antibody Screen NEGATIVE (NEGATIVE)
== END 2023-05-07 10:29 | disposition home or self-care (01) ==
LOC: HO.HMGCLDS 10:28
PROVIDERS: PCP Nurse Practitioner Family; Visit Provider Nurse Practitioner Family
DX: Z00.00 Encounter for general adult medical examination without abnormal findings (principal); M79.10 Myalgia, unspecified site; R79.89 Other specified abnormal findings of blood chemistry; R53.83 Other fatigue
CPT/HCPCS: 36415; 81003; 84439; 84443; 85025; 85652; 86038; 86140; 86235

== ENCOUNTER 2023-05-11 08:26 | Outpatient (AMB) | payer BC, SELFPAY ==
--- NOTE | 2023-05-11 08:37 | A.OFFVIS_ITS ---
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 Pt reports increased fatigue and wt gain over the last couple of years. 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 He also reports snoring, non refreshing sleep. He always wakes up 3:30 am, he used to start work 4:30 am. Pt reports difficulty staying sleep, uses melatonin 25 mg qHS. Sleep questionnaire: Have you ever been diagnosed with a sleep disorder? No. Have you ever had a sleep study in the past? No. Have you ever been treated for a sleep disorder? No. Do you take medications for a sleep disorder? Having difficulty staying sleep and uses Melatonin 25 mg. Do you snore? Yes. Do you wake up gasping at night? No. Do you have episodes of apneas? Yes. If yes, are they witnessed? Yes. Do you have episodes of nocturnal chest pain or dyspnea? No. Do you have difficulty initiating sleep? No. Do you have difficulty maintaining sleep? Yes. Do you wake up tired? Yes. Do you have headaches upon awakening? No. Do you wake up with dry mouth or throat? No. Do you have GERD? No. Do you have nocturia? No. Do you have nocturnal leg cramps? No. Do you have symptoms of restless legs? No. Do you act out your dreams? No. Sleep hygiene questionnaire: What is your usual sleep routine? Usual bedtime is at 9:30-10 pm; Usual wake up time is at 6-6:30 am. Do you take naps? No. Is your sleep environment cool, dark, and quiet? Yes. Do you exercise? Yes, walking, light lifting. Do you take caffeine or other stimulants? 2-3 cups of coffee in the morning. Do you use electronics in bed? Yes, watching TV. What is your work schedule? 6 am to 3:30 pm. Hypersomnolence questionnaire: Do you have daytime tiredness or fatigue? Yes. Do you easily fall asleep when inactive? Yes. Have you ever had episodes of sudden weakness? No. Have you ever had episodes of sudden weakness associated with strong emotions? No. PFSH Family History Father Diabetes Social History Housing: House Patient Tobacco Use Status: Former Tobacco user Years Smoked: quit smoking x1 month e-Cigarette/Vaping Use: Never Used Second Hand Smoke Exposure: No service: Yes Current occupational status: employed Current occupation: [employer] Current occupational exposures/hazards: No Cognitive needs: No Hearing needs: No Vision needs: No Review of Systems Const All systems reviewed & are unremarkable except as noted in HPI and below Physical Exam Vital Signs: Last Vital Signs Pulse 79 05/11/23 08:43 BP 130/82 05/11/23 08:43 Pulse Ox 96 05/11/23 08:43 Oxygen Delivery Method Room Air 05/11/23 08:43 BMI result Body Mass Index 32.8 Const General: cooperative Nutritional Appearance: obese Orientation/consciousness: patient oriented x3 Neck Neck: Yes full ROM and Yes supple Resp Effort & Inspection: normal respiratory effort and able to speak in complete sentences Neuro General: patient oriented x3, gait normal and moves all extremities Cranial nerves: Yes CN's II-XII intact bilaterally Cognition (Neuro): normal cognition Gait exam (Neuro): Normal gait present Motor exam (neuro): 5/5 motor strength present throughout Psych Appearance: grossly normal Mental Status: mental status grossly normal Speech and movement: Normal speech and movement present Affect: normal affect Attitude: cooperative Assessment & Plan Assessment & Plan (1) Daytime sleepiness: Code(s): R40.0 - Somnolence (2) Snoring: Code(s): R06.83 - Snoring Plan Pt is advised to undergo home sleep study to assess for sleep apnea. Will f/u with pt after study to discuss results and appropriate treatment options. Sleep hygiene education provided. Limit electronic use before bedtime. May try magnesium supplement for sleep. Wt reduction advised. Pt to call with any worsening concerns or questions. Orders: Orders RT home sleep study Today R06.83 - Snoring, R40.0 - Somnolence Coding Level of Care Code New Pt Level 3 (99284) Diagnoses Daytime sleepiness R40.0 Snoring R06.83
[2023-05-11 08:43] VITALS: BP 130/82; PULSE 79; O2SAT 96; BMI 32.8
== END 2023-05-11 09:14 | disposition home or self-care (01) ==
PROVIDERS: PCP Nurse Practitioner Family; Visit Provider Nurse Practitioner Family
DX: R40.0 Somnolence (principal); R06.83 Snoring
CPT/HCPCS: 99203; 99213

== ENCOUNTER → 2023-05-11 08:26 | Outpatient (BNVA) | payer BC, SELFPAY | PROVIDERS: PCP Nurse Practitioner Family; Visit Provider Nurse Practitioner Family ==

== ENCOUNTER 2023-05-25 07:58 | Outpatient (AMB) | payer BC, SELFPAY ==
--- NOTE | 2023-05-25 07:17 | A.OFFPC_ITS ---
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 Pt is currently taking levothyroxine 237.5mg. He has seen several endocrinologists, he will be seeing a different endo on 06/10. Pt reports ongoing fatigue, body aches, and dizziness which is causing him to miss work. Will keep pt out of work until 07/24 pending endo's evaluation and treatment plan. Denies fever, chills, and N/V/D. [facility] Medical History (Updated 05/25/23 @ 07:57 by Nic Willoughby [facility]) Body aches Family History Father Diabetes Social History Housing: House Patient Tobacco Use Status: Former Tobacco user Years Smoked: quit smoking x1 month e-Cigarette/Vaping Use: Never Used Second Hand Smoke Exposure: No service: Yes Current occupational status: employed Current occupation: [employer] Current occupational exposures/hazards: No Cognitive needs: No Hearing needs: No Vision needs: No Questionnaire Thrive Questionnaire Date Thrive assessed: 07/08/22 DHRUV-7 AMB Questionnaire DHRUV-7 Date DHRUV - 7 assessed: 07/08/22 Source: Developed by Drs. Pipo Tran, Yulia Javed, Joe Townsend and colleagues, with an educational kem from [employer]. Physical exam (Primary Care) Tobacco/Smoking Status: Tobacco use Status Tobacco use date assessed 03/05/23 05/25/23 07:24 Patient Tobacco Use Status Former Tobacco user 05/25/23 07:24 e-Cigarette/Vaping Use Never Used 05/25/23 07:24 Thrive Assessment: Date of Thrive Assessment Date Thrive assessed 07/08/22 05/25/23 07:24 Assessment and Plan Assessment & Plan (1) Low TSH level: Code(s): R79.89 - Other specified abnormal findings of blood chemistry (2) Hypothyroid: Code(s): E03.9 - Hypothyroidism, unspecified (3) Fatigue: Code(s): R53.83 - Other fatigue (4) Body aches: Code(s): R52 - Pain, unspecified (5) Vertigo: Code(s): R42 - Dizziness and giddiness Coding Level of Care Code Tele Est Pt Level 3 (43708) Diagnoses Low TSH level R79.89 Hypothyroid E03.9 Fatigue R53.83 Body aches R52 Vertigo R42
== END 2023-05-25 17:17 | disposition home or self-care (01) ==
PROVIDERS: PCP Nurse Practitioner Family; Visit Provider Nurse Practitioner Family
DX: E03.9 Hypothyroidism, unspecified (principal); R79.89 Other specified abnormal findings of blood chemistry; R53.83 Other fatigue; R52 Pain, unspecified; R42 Dizziness and giddiness
CPT/HCPCS: 99213

== ENCOUNTER 2023-07-01 07:01 | Outpatient (REF) | payer BC, SELFPAY ==
[2023-07-01 11:30] LABS: Free T4 (Free Thyroxine) 1.61 ng/dL (0.71-1.85); Thyroid Stimulating Hormone < 0.01 uIU/mL (0.32-4.0)
[2023-07-02 07:37] LABS: Triiodothyronine T3 Free 4.7 pg/mL (2.3-4.2)
[2023-07-02 19:08] LABS: Immunoglobulin A 293 mg/dL (70-320)
[2023-07-02 21:23] LABS: Transglutaminase IgA <1.0 U/mL
== END 2023-07-01 07:02 | disposition home or self-care (01) ==
LOC: HO.HMGCLDS 07:01
PROVIDERS: PCP Nurse Practitioner Family; Visit Provider Emergency Medicine
DX: E03.9 Hypothyroidism, unspecified (principal); R19.7 Diarrhea, unspecified
CPT/HCPCS: 36415; 82784; 84439; 84443; 84481; 86364

== ENCOUNTER 2023-08-04 08:33 | Outpatient (REF) | payer BC, SELFPAY ==
[2023-08-04 11:18] LABS: Free T4 (Free Thyroxine) 1.31 ng/dL (0.71-1.85); Thyroid Stimulating Hormone < 0.01 uIU/mL (0.32-4.0)
[2023-08-05 06:14] LABS: Triiodothyronine T3 Free 4.2 pg/mL (2.3-4.2)
== END 2023-08-04 08:34 | disposition home or self-care (01) ==
LOC: HO.HMGCLDS 08:33
PROVIDERS: PCP Nurse Practitioner Family; Visit Provider Emergency Medicine
DX: E03.9 Hypothyroidism, unspecified (principal)
CPT/HCPCS: 36415; 84439; 84443; 84481

== ENCOUNTER → 2023-08-10 08:06 | Outpatient (BNVA) | payer BC, SELFPAY | PROVIDERS: Absent Provider Psychiatry & Neurology Neurology; PCP Nurse Practitioner Family; Visit Provider Psychiatry & Neurology Neurology ==

== ENCOUNTER 2023-09-03 09:20 | Outpatient (AMB) | payer SELFPAY ==
--- NOTE | 2023-09-03 09:25 | MHC.PC.OV ---
Vital Signs 09/03/23 09:31 Height 5 ft 11 in Weight 233 lb BMI 32.5 BP 150/100 H Blood Pressure Location Lt brachial Position Sitting Pulse 103 H Pulse Source Pulse Oximeter Pulse Oximetry (%) 98 Oxygen Delivery Method Room Air Intake Visit Reasons: 6 Month follow up Allergies Whiwnlk-EGL-ZrL Reductase Inhibitor [Kapwfob-Nmb-Qey Reductase Inhibitor] Adverse Reaction (Mild, Verified 09/03/23 09:32) joint pains Medication List - Last Reconciled 09/03/23 by MARTA Pham levothyroxine 175 mcg PO DAILY Tobacco use date assessed: 09/03/23 Fall risk assessment: No Falls in past year Last assessed Fall Risk: 09/03/23 Dental Screening Dental Screen Date: 09/03/23 Did you have a dental visit in the last 12 months?: No Did you have a dental problem in the last 6 months where you did not have access to dental care?: No Was dental information given to patient?: Patient has dentist HPI 6 Month follow up HPI Details Pt is following up with endo due to alternating high and low TSH. Pt is currently taking levothyroxine 175mcg which was recently decreased by endo, pt is reporting feeling better. HTN: Blood pressure is elevated today. Will have pt monitor his blood pressure at home and drop off readings in the next few weeks. Will order labs. Denies chest pain, shortness of breath, headache, dizziness, and blurred vision. Pt smoked up to a pack a day until 2.5 years ago. Will refer for low-dose CT. PFSH Medical History Body aches Family History Father Diabetes Social History Housing: House Patient Tobacco Use Status: Former Tobacco user Years Smoked: quit smoking x1 month e-Cigarette/Vaping Use: Never Used Second Hand Smoke Exposure: No service: Yes Current occupational status: employed Current occupation: [employer] Current occupational exposures/hazards: No Cognitive needs: No Hearing needs: No Vision needs: No Questionnaire Thrive Questionnaire Date Thrive assessed: 07/08/22 AUDIT C Alcohol Use Questionnaire (AUDIT-C) 1. How often do you have a drink containing alcohol?: 2-4 times a month 2. How many drinks containing alcohol do you have on a typical day when you are drinking?: 1 or 2 3. How often do you have six or more drinks on one occasion?: Never Total Score: 2 Score Reviewed/Action Taken: No DHRUV-7 AMB Questionnaire DHRUV-7 Date DHRUV - 7 assessed: 07/08/22 Source: Developed by Drs. Pipo Tran, Yulia Javed, Joe Townsend and colleagues, with an educational kem from [employer]. Review of Systems Const Reports as per HPI Physical exam (Primary Care) Vital Signs: Last Vital Signs Pulse 103 H 09/03/23 09:31 BP 150/100 H 09/03/23 09:31 Pulse Ox 98 09/03/23 09:31 Oxygen Delivery Method Room Air 09/03/23 09:31 BMI result Body Mass Index 32.5 Tobacco/Smoking Status: Tobacco use Status Tobacco use date assessed 09/03/23 09/03/23 09:35 Patient Tobacco Use Status Former Tobacco user 09/03/23 09:26 e-Cigarette/Vaping Use Never Used 09/03/23 09:26 Thrive Assessment: Date of Thrive Assessment Date Thrive assessed 07/08/22 09/03/23 09:26 Const General: cooperative Nutritional Appearance: obese Orientation/consciousness: patient oriented x3 Resp Effort & Inspection: normal respiratory effort Auscultation: clear to auscultation bilaterally Cardio Rate: regular rate Rhythm: regular rhythm Heart sounds: S1 normal heart sound present Neuro General: patient oriented x3 Psych Appearance: grossly normal Mental Status: mental status grossly normal Speech and movement: Normal speech and movement present Affect: normal affect Attitude: cooperative Thought process: Normal thought process present Thought content: Normal thought content present Insight: Good insight present (Psych) Judgement: Good judgement present (Psych) Assessment and Plan Assessment & Plan (1) HTN (hypertension): Code(s): I10 - Essential (primary) hypertension Plan: Will have pt monitor his BP at home (2) Screening PSA (prostate specific antigen): Code(s): Z12.5 - Encounter for screening for malignant neoplasm of prostate Plan: PSA ordered (3) Smoking: Code(s): F17.200 - Nicotine dependence, unspecified, uncomplicated Plan: referred for LDCT Plan The patient agreed to the use of a medical receptionist biller for this encounter. Scribed for JOSE Jones-DAMARIS by Bernice Thao medical receptionist biller, on 09/03/2023 at 09:40 EST. Orders: Orders Comprehensive [place]. Panel Fast Today I10 - Essential (primary) hypertension UA CC w/rflx Micro + Cult Today I10 - Essential (primary) hypertension Lipid Panel Today I10 - Essential (primary) hypertension Complete Blood Count Auto Diff Today I10 - Essential (primary) hypertension TSH reflex Free T4 Today I10 - Essential (primary) hypertension Prostate Specific Antigen Scr Today Z12.5 - Encounter for screening for malignant neoplasm of prostate Referrals Thoracic/General Surgery Referral F17.200 - Nicotine dependence, unspecified, uncomplicated Coding Level of Care Code Est Pt Level 3 (56513) Diagnoses HTN (hypertension) I10 Screening PSA (prostate specific antigen) Z12.5 Smoking F17.200
[2023-09-03 09:31] VITALS: BP 150/100; PULSE 103; O2SAT 98; BMI 32.5
== END 2023-09-03 10:42 | disposition home or self-care (01) ==
PROVIDERS: PCP Nurse Practitioner Family; Visit Provider Nurse Practitioner Family
DX: I10 Essential (primary) hypertension (principal); Z12.5 Encounter for screening for malignant neoplasm of prostate; F17.200 Nicotine dependence, unspecified, uncomplicated
CPT/HCPCS: 99213

== ENCOUNTER → 2023-09-14 09:57 | Outpatient (REF) | payer BC, MEDICARE, SELFPAY | LOC: HO.SL 09:57 | PROVIDERS: PCP Nurse Practitioner Family; Visit Provider Nurse Practitioner Family | DX: G47.33 Obstructive sleep apnea (adult) (pediatric) (principal); R06.83 Snoring; R40.0 Somnolence | CPT/HCPCS: 95806 ==

== ENCOUNTER → 2023-09-14 13:03 | Outpatient (BNV) | payer MEDICARE, SELFPAY | PROVIDERS: PCP Nurse Practitioner Family; Visit Provider Psychiatry & Neurology Neurology | DX: G47.33 Obstructive sleep apnea (adult) (pediatric) (principal) | CPT/HCPCS: 95806 ==

== ENCOUNTER 2023-10-12 06:11 | Outpatient (REF) | payer MEDICARE, SELFPAY ==
[2023-10-12 10:16] LABS: MANUAL DIFF FLAG NO
[2023-10-12 10:17] LABS: Appearance Urine Turbid; Color Urine Yellow; Glucose Urine UA Negative (Negative); Leukocyte Esterase Urine Negative (Negative); Nitrite Urine Negative (Negative); PH 5.5 (5.0-9.0); Specific Gravity - Urine 1.025 (1.005-1.025); Urine Blood Negative (Negative); Urine Ketones Negative (Negative); Urine Protein Trace mg/dL (Neg-Trace)
[2023-10-12 10:27] LABS: Basophils Percent Auto 0.5 % (0-2); Eosinophils Absolute Auto 0.1 X10*3/uL (0.0-0.4); Eosinophils Percent Auto 1.5 % (0-4); Hematocrit 48.2 % (42.0-52.0); Hemoglobin 16.2 g/dl (14.0-18.0); Imm Gran Abs Auto 0.05 X10*3/uL (0.00-0.03); Imm Gran Pct Auto 0.8 % (0.0-0.4); Lymphocytes Absolute Auto 2.7 X10*3/uL (1.2-4.9); Lymphocytes Percent Auto 42.9 % (20-40); Mean Corpuscular HGB Conc 33.6 g/dl (31.0-36.0); Mean Corpuscular Hemoglobin 29.3 pg (27.0-33.0); Mean Corpuscular Volume 87.3 fL (80.0-98.0); Mean Platelet Volume 10.8 fL (9.4-12.4); Monocytes Absolute Auto 0.5 X10*3/uL (0.1-1.2); Monocytes Percent Auto 7.4 % (2-11); Neutrophils Absolute Auto 2.9 x10*3/uL (2.0-8.3); Neutrophils Percent Auto 46.9 % (45-73); Platelet Count 272 X10*3/uL (160-400); Red Blood Count 5.52 X10*6/uL (4.60-5.80); Red Cell Distribution Width 13.5 % (11.0-16.0); White Blood Count 6.2 X10*3/uL (4.8-10.8)
[2023-10-12 10:55] LABS: Alanine Aminotransferase 43 U/L (0-40); Alkaline Phosphatase 107 U/L (39-117); Anion Gap 12 (12-20); Aspartate Amino Transferase 25 U/L (5-37); Bilirubin Total 0.3 mg/dL (0.0-1.0); Blood Urea Nitrogen 11 mg/dL (9-16); Calcium 8.9 mg/dL (8.4-10.2); Carbon Dioxide 25 mmol/L (22-29); Chloride 106 mmol/L (96-108); Cholesterol 273 mg/dL (<200); Estimated Glomerular Filt Rate > 60; Glucose Fasting 101 mg/dL (60-99); HDL Cholesterol 53 mg/dL (>40); LDL Cholesterol Calculated 178 mg/dL (<100); Potassium 4.2 mmol/L (3.3-5.1); Sodium 139 mmol/L (135-145); TSH reflex Free T4 0.06 uIU/mL (0.32-4.0); Total Protein 7.4 g/dL (6.5-8.0); Triglycerides 212 mg/dL (<150)
[2023-10-12 11:04] LABS: Prostate Specific Antigen Scr 0.43 ng/mL (<0.05-4.0)
[2023-10-12 14:14] LABS: Free T4 (Free Thyroxine) 1.11 ng/dL (0.71-1.85)
[2023-10-13 12:17] LABS: Triiodothyronine T3 Free 2.9 pg/mL (2.3-4.2)
== END 2023-10-12 06:12 | disposition home or self-care (01) ==
LOC: HO.HMGCLDS 06:11
PROVIDERS: PCP Nurse Practitioner Family; Visit Provider Emergency Medicine
DX: I10 Essential (primary) hypertension (principal); Z12.5 Encounter for screening for malignant neoplasm of prostate; E03.9 Hypothyroidism, unspecified
CPT/HCPCS: 36415; 80053; 80061; 81003; 84153; 84439; 84443; 84481; 85025

== ENCOUNTER 2024-03-21 10:19 | Outpatient (AMB) | payer OTHER, SELFPAY ==
--- OUTSIDE RECORDS SUMMARY | 2024-03-21 10:22 | XMS_ITS ---
Author Organization [facility] Address [address] [place] [address] Care Team Providers Care Secretary Receptionist Name Role Phone Nic Enriquez Primary Care Provider Unav ailable Black, Hayde Unavailable [phone] REASON FOR VISIT cx 12/29 Encounters Encounter Location Date Provider Diagnosis [facility] [address] [place] [address] 12/10/2022 Hayde Black Plan Of Treatment No Information Progress Notes * Mateus ORRDOB: [birth year] (67 yo M)Acc No.[id number]:12/10/2022 Patient:?KirbyMateus :1955???Age:67 Y???Sex:Male Address:[address] [place] [address], [id number] * true * Date:? Generated for Printi ng/Faxing/eTransmitting on:?03/21/2024 10:21 AM EST
--- OUTSIDE RECORDS SUMMARY | 2024-03-21 10:22 | XMS_ITS ---
Author Organization [facility] Address [address] [place] [address] Care Team Providers Care Mortgage Manager Name Role Phone Nic Enriquez Primary Care Provider Unav ailable Hayde López Unavailable [phone] REASON FOR VISIT cx Encounters Encounter Location Date Provider Diagnosis [facility] [address] [place] [address] 12/29/2022 Hayde López Plan Of Treatment No Information Progress Notes * Mateus ARBOLEDADOB: [birth year] (69 yo M)Acc No.[id number]:12/29/2022 Progress Note Patient:Mateus CORREA Provider:?Hayde López DPM :1955???Age:67 Y???Sex:Male Truong e:12/29/2022 Address:[address] [place] [address] [phone] Pcp:QUINN Jones Subjective: * Chief Complaints: * ???1. Cx. * Medical History:? Objective: * Vitals:? Assessment: Plan: * Treatment: * Images: * The named appointment provid er may or may not be the originator of this progress note, and it is not deemed complete until electronically signed by the appointment provider. Sign off status: Pending * Provider:?Hayde López DPM Date:?2022 Generated for Shoshana holm/Ambreen/Bessie on:?03/21/2024 10:21 AM EST
--- OUTSIDE RECORDS SUMMARY | 2024-03-21 10:22 | XMS_ITS ---
[facility] Address [address] [place] [address] Care Team Providers Care Truck Body Builder Name Role Phone Nic Enriquez Primary Care Provider Unav ailable Black, Hayde Unavailable [phone] Allergies Allergen (clinical drug ingredient) Drug/Non Drug Allergy documented on EMR Reaction Allergy Type Onset Date Status Substance with 7-gcntmjo-8-methylglut aryl-coenzyme A reductase inhibitor mechanism of action (substance) Statins joint pain Drug Allergy Active REASON FOR VISIT Pcp- 07/2022, PCP 06/2022, Heel pain, Swelling Medications Medication SIG (Take, Route, Frequency, Duration) Notes Start Date End Date Status Feldene 20 MG 1 capsule with food Orally Once a day for 30 days 08/25/2022 Active Nightsplint . . . AFO - L1930 for . Active Levothyroxine Sodium 200 MCG 1 tablet in the morning on an empty stomach Orally Once a day for 30 day(s) Active Colesevelam HCl 625 MG 2 tablets Orally Twice a day WelChol Active Compression Stockings 20-30mm Hg 1 pair wear daily for 30 days Active Social History Tobacco Use: Social History Observation Description Date Details (start date - stop date) Former Smoker NA - NA Tobacco Use/Smoking Question Answer Notes Are you a: former smoker Additional Findings: Tobacco Non-User Current no n-smoker Alcohol Screen Question Answer Notes Did you have a drink contain ing alcohol in the past year? Yes How often did you have a dri nk containing alcohol in the past year? Monthly or less (1 point) Points 1 Interpretation Negative Tobacco use other than smoking: Question Answer Notes Are you an other tobacco user? No Vital Signs Height 5 ft 11 in in 10/13/2022 Weight 220 lbs 10/13/2022 BMI 30.68 kg/m2 10/13/2022 Encounters Encounter Location Date Provider Diagnosis [facility] [address] [place] [address] 10/13/2022 Hayde López Plantar fascial fibromatosis M72.2 ; Pain in right foot M79.671 ; Other myositis of right foot M60.871 ; Bursitis of right foot M77.51 ; Pain in left foot M79.672 ; Other myositis of left foot M60.872 ; Bursitis of left foot M77.52 and Edema, lower extremity R60.0 Assessments Encounter Date Diagnosis (ICD Code) Assessment Notes Treatment Notes Treatment Clinical Notes Section Notes 10/13/2022 Plantar fascial fibromatosis (ICD-10 - M72.2) Acute problem, Stable (1=3) 10/13/2022 Pain in right foot (ICD-10 - M79.671) 10/13/2022 Other myositis of right foot (ICD-10 - M60.871) 10/13/2022 Bursitis of right foot (ICD-10 - M77.51) 10/13/2022 Pain in left foot (ICD-10 - M79.672) 10/13/2022 Other myositis of left foot (ICD-10 - M60.872) 10/13/2022 Bursitis of left foot (ICD-10 - M77.52) 10/13/2022 Edema, lower extremity (ICD-10 - R60.0) Plan Of Treatment Medication Medication Name Sig Start Date Stop Date Notes Compression Stockings 20-30mm Hg 1 pair wear daily for 30 days Next Appt Details Follow Up: 6-8 w, Reason: Progress Notes * Mateus ORRDOB: [birth year] (67 yo M)Acc No.[id number]:10/13/2022 Progress Notes Patient:?Mateus Orr Provider:?Hayde López DPM :1955???Age:67 Y???Sex:Male Truong e:10/13/2022 Address: [address] , [id number] Pcp:QUINN Jones Subjective: * Chief Complaints: * ???Pcp- 07/2022 PCP 06/2022He el painSwelling * HPI: ???Heel pain:?Nature:?tenderness, sharp pain, stiffness.?Location:?Proximal plantar aspect of Heel R>L.?Duration:?a year or more.?Onset/Cause:?unknown , denies trauma.?Course:?improved , unresolved , intermittent.?Aggrevated:?standing, walking, walking first thing in the morning/after rest.?Treatments:?medication ( feldene 20mg?),compression socks. night splints, stretching exercises.?Swelling:?Location:?Both feet/leg.?Duration:?several weeks.?Course:?worse.? * ROS:?General/Constitutional:?Nausea?denies.?Vomiting?denies.?Hunger Thirst?denies.?Loss appetite?denies.?Chills?denies.?Fatigue?denies.?Fever?denies.?Night Sweats?denies.?Unexplained weight loss?denies.?Unexplained weight gain?admits.?HEENTM:?Dentures?denies.?Dizziness?denies.?Glasses/contacts?admits.?Retinopathy?de nies.?Blurred/double vision?denies.?TMJ?denies.?Discharge/drainage?denies.?Implants?denies.?Sore throat?denies.?Dental implants?denies.?Hard of hearing ?denies.?Difficulty chewing/swallowing/speaking?denies.?Nose bleeds?denies.?Sore mouth?denies.?Respiratory:?On Oxygen?denies.?Pneumonia/pleurisy?denies.?Bronchitis?denies.?Emphysema?denies.?C oughing?denies.?Cough blood?denies.?Shortness of breath?denies.?Wheezing?denies.?Cardiovascular:?Pacemaker?denies.?MVP?denies.?WPW?denies.?CHF?denies.?Heart attack?denies.?Septal defect?denies.?Rapid beat?denies.?Chest pain ?denies.?Atrial Fib.?denies.?Murmur/Palpitations?denies.?Gastrointestinal:?Hemorrhoids?denies.?Stomach/Abdominal pain?denies.?Dark blood stool?denies.?Irritable bowel ?denies.?Constipation?denies.?Diarrhea?denies.?Hematology:?Swelling?denies.?Clots?denies.?Varicose Veins?denies.?Bruising?denies.?Bleeding problem?denies.?Genitourinary:?Blood urine?denies.?Frequent/Painfu/urination/bladder control?denies.?Kidney stones?denies.?Infection (UTI)?denies.?Nephropathy?denies.?sex trans dis (STD)?denies.?Prostate?denies.?Musculoskeletal:?Hammertoes?denies.?Bunions?denies.?Back Pain?denies.?Muscle Cramps/ Resting?denies.?Muscle cramps / walking?denies.?Generalized aches and pains?denies.?Weakness?denies.?Integ.:?Montoya?denies.?Scars?denies.?Corns/calluses?denies.?Ingrown nails?denies.?Painful nails?denies.?Open Sores?denies.?Rashes?denies.?Neurologic:?Difficulty sleeping?denies.?Brain disorder?denies.?Numbness?denies.?Balance trouble?denies.?Confusion?denies.?Fainting/blackouts?denies.?Tingling?denies.?Tr emors?denies.? * Medical History:? * Surgical History:?Denies Pas t Surgical History * Hospitalization/Major Diagno stic Procedure:?Denies Past Hospitalization * Family History:?Father: karen nosed with Other malignant neoplasm of unspecified site, Diabetic - NIDDM.? * Social History:?Tobacco Use:?Tobacco Use/Smoking?Are you a:?former smoker ?Additional Findings: Tobacco Non-User?Current non-smoker ?Tobacco use other than smoking?Are you an other tobacco user??No ???Drugs/Alcohol:?Drugs?Have you used drugs other than those for medical reasons in the past 12 months??No ?Alcohol Screen?Did you have a drink containing alcohol in the past year??Yes ?How often did you have a drink containing alcohol in the past year??Monthly or less (1 point) ?Points?1 ?Interpretation?Negative ???Miscellaneous:?Caffeine: yes, 1-2 cups per day. ?no Children. ?Exercise: yes, golfing, fishing, pool. ?Marital status: single. 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 * Medications:?TakingColesevel am HCl 625 MG Tablet 2 tablets Orally Twice a day, Notes: WelCholLevothyroxine Sodium 200 MCG Tablet 1 tablet in the morning on an empty stomach Orally Once a dayNightsplint . . . . AFO - [id number] 20 MG Capsule 1 capsule with food Orally Once a dayMedication List reviewed and reconciled with the patientTaking Colesevelam HCl 625 MG Tablet 2 tablets Orally Twice a day, Notes: WelCholTaking Levothyroxine Sodium 200 MCG Tablet 1 tablet in the morning on an empty stomach Orally Once a dayTaking Nightsplint . . . . AFO - B9609Hocxho Feldene 20 MG Capsule 1 capsule with food Orally Once a dayMedication List reviewed and reconciled with the patient * Allergies:?Statins: joint pa inyes[Allergies Verified] Objective: * Vitals:?Ht: 5 ft 11 in, Wt:2 20, BMI:30.68, Shoe size:9-9.5. * Examination: ???Heel Pain: ?INSPECTION REVEALS:?CONT, Pain on Palpation to Plantar Fascia med. and central bands, intrinsic musc., infracalcaneal bursa, and med calc tubercle, B/L, No pain: posterior/superior heel, achilles bursa/tendon, sinus tarsi, peroneals, or with lateral heel compression; no limited STJ ROM, calor, or ecchymosis b/l R>L.?X-Rays: ?Fracture:?Negative fractures identified.?Orthopedic: ?GAIT ABNORMALITY:? antalgic.?FOOT MORPHOLOGY:? Pes Planus structure, Decreased Ankle joint dorsiflexion ROM, knee extended.?Neurological: ?SENSORY:?Neurological exam reveals intact sensorium, pain sensation normal, vibration sensation intact, pinprick sensation is normal in the lower extremities, Pt denies, anesthesia, burning, paresthesia, tingling, B/L.?TINEL'S COMPRESSION:?Negative tarsal tunnel, taylor pedis, and medial calcaneal nerves.?General Examination: ?GENERAL APPEARANCE:?Reveals a pleasant, alert, well nourished, well- developed, well hydrated individual, who demonstrates proper attention to hygiene/body habitus, and is in no acute distress.?ORIENTED:?person, place, and time.?Vascular: ?DP PULSES:?3/4, B/L.?PT PULSES:?3/4, B/L.?CAPILLARY FILL TIME:?immediate, all digits, B/L.?SKIN TEMPERTURE GRADIENT OF THE LOWER EXTERMITIES:?normal, warm to cool, proximal to distal, B/L, B/L.?HAIR GROWTH/TEXTURE/ELASTICITY/TURGOR:?normal, B/L.?PIGMENTATION:?normal, B/L.?EDEMA:?1/4 , Ankle(s) , non-pitting.?TELANGECTASIA:?absent.?ASHLEY'S SIGN:?absent, B/L.?PALPABLE CORDS:?absent, B/L.? Assessment: * Assessment: 1.?Plantar fascial fibromato sis - M72.2 (Primary), B/L, Acute problem, Stable (1=3)?2.?Pain in right foot - M79.671?3.?Other myositis of right foot - M60.871?4.?Bursitis of right foot - M77.51?5.?Pain in left foot - M79.672?6.?Other myositis of left foot - M60.872?7.?Bursitis of left foot - M77.52?8.?Edema, lower extremity - R60.0, Acute problem, Uncomplicated (3),Drug Rx Management (4)? Plan: * Treatment: * Procedure Codes:? * Preventive Medicine:? ??Counseling:?Discussion:?-14: Office or other outpatient visit for the evaluation and management of an established patient, which required a medically appropriate history and/or examination and MODERATE level of DECISION MAKING for: 1 OR MORE CHRONIC PROBLEM(S) THATS WORSENING, 2 STABLE CHRONIC PROBLEMS, A NEWLY DIAGNOSED PROBLEM WITH UNCERTAIN PROGNOSIS, AN ACUTE COMPLICATED INJURY WITH MULTIPLE TREATMENT OPTIONS, OR AN ACUTE PROBLEM WITH ACCOMPANYING SYSTEMIC SYMPTOMS, THAT POSE(S) A MODERATE RISK OF MORBIDITY. THIS CONDITION MAY ALSO INCLUDE RX DRUG MANAGEMENT, OR A DECISON FOR MINOR SURGERY. When using time for code selection, 30-39 min of total time was spent on the day of the encounter interpreting the data and educating the patient as to the nature of their condition, treatment options available according to their individual PMH, meds, allergies, and overall health/living conditions, as well as any potential risks or complications that may occur from a failure to adhere to, and participate in, the recommended course of therapy. The discussion included a complete verbal, and/or written explanation of the examination results, any x-rays taken, the proposed diagnosis, and outline of the treatment plan. A schedule for future care needs was also explained. The patient verbalized an understanding of the instructions at this time and agreed to be an active participant in their treatment. If the patient should think of any questions or concerns after the visit, I have encouraged the patient to call the office.?Edema:?I explained to the patient the possible etiologies for Edema, including genetic, surgery, infection, medications, heart disease, kidney disease, excess dietary salt, and various cancer treatments. We discussed the risks/benefits of the treatment options available including rest, elevation, OTC compression stockings, Rx compression stockings, Unna Boot application, diet modification to limit salt intake, and Rx segmental compression boots provided the absence of CHD in the patients medical history. The advantages and disadvantages of each option were discussed and the patients questions re: risk of infection(cellulitis), medications, diet, and the daily use of compression stockings(not to be worn at night), and consistency in these home treatment regimens for optimal success were answered to their verbally confirmed satisfaction. Given the risk for vessel clotting disease, the patient was instructed to go immediately to the ER of hospital should they experience any calf pain, SOB, or discomfort. Any changes to the patients medication regimen will be performed by the PCP or patients kidney/heart/cancer specialist..?Heel pain:?Discussed other TX options for the patients condition, The patient wishes to continue with the present treatment plan for their condition, We elected to continue with the present TX plan. Pt will cont. All aspects of care. We feel physical therapy is not warranted at this time.Discussed activity treating it may take up to 6 mons to be symptom free.? * Follow Up:?6-8 w * Images: * Sign off status: Completed true * Provider:?Hayde López DPM Date:?2022 Generated for Shoshana holm/Ambreen/Bessie on:?03/21/2024 10:21 AM EST History and Physical Notes * HPI (History of Present Illness) Category Sub-Category Detail Notes Category Not es Heel pain Duration: a year or more Nature: tenderness, sharp pa in, stiffness Location: Proximal plantar asp ect of Heel R>L Onset/Cause: unknown , denies tra jered Aggravated: standing, walking, w alking first thing in the morning/after rest Course: improved , unresolve d , intermittent Treatments: medication ( feldene 20mg ),compression socks. night splints, stretching exercises Swelling Location: Both feet/leg Duration: several weeks Course: worse Examination Category Sub-Category Detail Notes Category Not es Heel Pain INSPECTION REVEALS: CONT, Pain o n Palpation to Plantar Fascia med. and central bands, intrinsic musc., infracalcaneal bursa, and med calc tubercle, B/L, No pain: posterior/superior heel, achilles bursa/tendon, sinus tarsi, peroneals, or with lateral heel compression; no limited STJ ROM, calor, or ecchymosis b/l R>L Neurological SENSORY: Neurological exa m reveals intact sensorium, pain sensation normal, vibration sensation intact, pinprick sensation is normal in the lower extremities, Pt denies, anesthesia, burning, paresthesia, tingling, B/L TINEL'S COMPRESSION: Negative tarsal hair yahir, taylor pedis, and medial calcaneal nerves Orthopedic GAIT ABNORMALITY: antalgic FOOT MORPHOLOGY: Pes Planus structure , Decreased Ankle joint dorsiflexion ROM, knee extended General Examination GENERAL APPEARANCE: Reveals a pleasant, alert, well nourished, well-developed, well hydrated individual, who demonstrates proper attention to hygiene/body habitus, and is in no acute distress ORIENTED: person, place, and t viral Vascular DP PULSES(B): 3/4, B/L PT PULSES(B): 3/4, B/L CAPILLARY FILL TIME: immediate, all digi ts, B/L TEMPERTURE GRADIENT(C): normal, warm to cool, proximal to distal, B/L, B/L TROPHIC CONDITION-TEXTURE/ELASTICITY/TURGOR/HAIR GROWTH(B): normal, B/L EDEMA(C): 1/4 , Ankle(s) , non -pitting TELANGECTASIA: absent ASHLEY'S SIGN: absent, B/L PALPABLE CORDS: absent, B/L PIGMENTATION: normal, B/L X-Rays - IMAGING REPORT Fracture: Negative fracture s identified
--- OUTSIDE RECORDS SUMMARY | 2024-03-21 10:22 | XMS_ITS | Patient Health Record ---
Author Organization [facility] Address [address] [place] [address] Care Team Providers Care Adult Basic Studies Teacher Name Role Phone Nic Enriquez Primary Care Provider Unav ailable Black, Hayde Unavailable [phone] Allergies Allergen (clinical drug ingredient) Drug/Non Drug Allergy documented on EMR Reaction Allergy Type Onset Date Status Substance with 8-tmxnzcs-0-methylglut aryl-coenzyme A reductase inhibitor mechanism of action (substance) Statins joint pain Drug Allergy Active Reason For Referral No Information Medications Medication SIG (Take, Route, Frequency, Duration) [...] Are you an other tobacco user? No Plan Of Treatment No Information Insurance Providers Payer Name Payer Address Payer Phone Subscriber Number Group Number Insured Name Patient Relationship to Insured Coverage Start Date Coverage End Date [employer] [address] [place] [address] [id number] Mateus Orr Self - patient is the insured Medical (General) History Medical History History ICD Code covid-19 Psoriasis/eczema thyroid Measles Mumps Chicken pox Surgical History Surgery Date(Month/Year)
--- NOTE | 2024-03-21 10:29 | A.OFFPC_ITS ---
Vital Signs 03/21/24 10:30 Height 5 ft 11 in Weight 232 lb BMI 32.4 BP 126/82 Blood Pressure Location Lt brachial Position Sitting Pulse 83 Pulse Source Pulse Oximeter Pulse Oximetry (%) 96 Oxygen Delivery Method Room Air Intake Visit Reasons: PE Intake Note: Pt is here today for his PE Allergies Rpmoeqe-MTM-WyU Reductase Inhibitor [Jzgccyw-Hvw-Ofo Reductase Inhibitor] Adverse Reaction (Mild, Verified 03/21/24 11:12) joint pains Medication List - Last Reconciled 03[facility]21[facility] 175 mcg PO DAILY Tobacco use date assessed: 03/21/24 Fall risk assessment: No Falls in past year Last assessed Fall Risk: 03/21/24 Dental Screening Dental Screen Date: 03/21/24 Did you have a dental visit in the last 12 months?: No Did you have a dental problem in the last 6 months where you did not have access to dental care?: No Was dental information given to patient?: No HPI PE HPI Details History of Present Illness The patient is a 69-year-old male presenting for a PE. The primary emphasis is reviewing chronic conditions and arranging necessary screenings (pt will call for follow up colon screen). The patient has a longstanding history of hypertension, for which no recent issues have been noted. Psoriasis is predominantly affecting the knees and behind the ears, with current management using a topical cream. Hypothyroidism has been previously managed with a decrease in medication dosage as per food operations manager guidance. The patient has been smoke-free for five years following a 30-year history of smoking up to one pack per day. The patient is currently overweight, having lost six pounds recently. He reports feelings of tiredness and is concerned about his testosterone levels. Previous thyroid levels were managed by a food operations manager. Refuses further vaccinations Health Maintenance - Discussed the need for a colonoscopy g iven age and previous inconclusive results. - Recommended annual low-dose chest CT f or lung cancer screening due to smoking history, even after cessation. - Discussed the ongoing management of ps oriasis with a topical cream. - Patient is engaged in weight managemen t strategies, aiming for significant weight loss. - Routine blood pressure monitoring demo nstrates stable readings. - Reviewed PSA levels, maintaining routi ne checks. Social History - Smoking: Quit five years ago after a 3 0-year history. - Exercise: Limited, reports being out o f shape. - Weight Management: Active weight loss efforts described. - Retired: Status noted, no current empl oyment. - Social: Prefers solitude, not currentl y dating or engaging in new relationships. - Insurance: [facility] Review of Systems - Constitutional: Reports general tiredn ess, denies fever, chills, weight loss aside from intentional loss. - Dermatological: Denies new skin change s aside from known psoriasis. - Respiratory: Denies shortness of breat h or significant respiratory complaints. - Gastrointestinal: Denies nausea, vomit ing, constipation, diarrhea, blood in stool. - Genitourinary: Denies urinary issues; PSA screening up to date. - Musculoskeletal: No recent concerns re ported. - Psychological: Denies anxiety or depre ssion. Physical Exam General: Cooperative, healthy appearing, comfortable, no acute distress and well developed Orientation: Patient oriented x3 Limitations: No limitations Head: Normal to inspection Ears: Hearing grossly normal bilaterally, but psoriasis noted in and behind ears Nose: Normal external nose present Face and sinus: Normal facial exam Eyes: Appearance normal, both eyes and all related structures Neck: Normal visual inspection and Yes full ROM Respiratory: Normal respiratory effort and able to speak in complete sentences. Clear to auscultation bilaterally Cardiovascular: Regular rate and rhythm. Normal S1 and S2 GI: Normal to inspection. Soft to palpation and nontender Skin: Psoriasis noted on both knees and posterior ears Neuro: Patient oriented x3 Extremities: Normal to inspection Results Plan - Arrange and facilitate a colonoscopy s creening. - Schedule annual low-dose CT scan for l hugo health monitoring due to smoking history. - Continue current topical cream for pso riasis and review supply for a possible refill. - Conduct comprehensive blood tests, inc luding testosterone, thyroid function, cholesterol, liver, and kidney functions. - Maintain routine PSAs as currently due and monitor urinary symptoms. - Encourage continuation of weight manag ement program. - Dermatology follow-up for ongoing livier gement of psoriasis. Patient was informed and verbally consented to the use of an ambient scribe for clinic note documentation during this visit. Discussion Notes I discussed with the patient the importance of completing the colonoscopy screening due to age and inconclusive past results. The benefits of lung cancer screening with a low-dose CT scan were explained, and I emphasized its relevance due to past smoking history despite cessation. Advised on routine dermatological management of psoriasis to keep symptoms controlled. The significance of regular blood tests was explained in managing testosterone, thyroid levels, cholesterol, and assessing kidney and liver function. The plan for weight loss, exercise, and lifestyle modifications was reinforced. Patient was advised to report any changes in urinary symptoms or other significant changes. Patient Instructions - Schedule colonoscopy as soon as possaranza le. - Attend the annual low-dose CT scan for lung cancer screening. - Keep using current psoriasis cream and request a refill if needed. - Follow up on blood test results, inclu ding testosterone and thyroid levels. - Maintain weight loss efforts and incor porate regular physical activity. - Inform the clinic of any urinary calvo es or general concerns. - Continue following up with your endocr inologist as planned. - Expect a call or note to confirm annua l check-ups and screenings. [facility] Medical History Elevated hemidiaphragm Body aches Family History Father Diabetes Social History Housing: House Patient Tobacco Use Status: Former Tobacco user Years Smoked: quit smoking x1 month e-Cigarette/Vaping Use: Never Used Second Hand Smoke Exposure: No service: Yes Current occupational status: employed Current occupation: [employer] Current occupational exposures/hazards: No Cognitive needs: No Hearing needs: No Vision needs: No Questionnaire PHQ-9 Over the last 2 weeks, how often have you been bothered by any of the following problems? 1. Little interest or pleasure in doing things: not at all 2. Feeling down, depressed, or hopeless: not at all 3. Trouble falling or staying asleep, or sleeping too much: not at all 4. Feeling tired or having little energy: more than half the days 5. Poor appetite or overeating: not at all 6. Feeling bad about yourself - or that you are a failure or have let yourself or your family down: not at all 7. Trouble concentrating on things, such as reading the newspaper or watching television: not at all 8. Moving or speaking so slowly that other people could have noticed. Or the opposite - being so fidgety or restless that you have been moving around a lot more than usual: not at all 9. Thoughts that you would be better off or of hurting yourself in some way: not at all Total score: 2 Depression Screening Interpretation: Negative Depression Screening Done: Yes 75066 - PHQ-9 Billing: Yes Source: Developed by Drs. Pipo Tran, Yulia Javed, Joe Townsend and colleagues, with an educational kem from [employer]. Thrive Questionnaire Date Thrive assessed: 03/21/24 I am a: Patient What is your living situation today?: I have a steady place to live Within the past 12 months, did the food you bought not last and you didn't have the money to get more?: Never true Within the past 12 months, did you worry whether your food would run out before you got money to buy more?: Never true Do you have trouble paying for medicines?: No Do you have trouble getting transportation to medical appointments?: No Do you have trouble paying your heating and electricity bill?: No Do you have trouble taking care of your child, family member or friend?: No Do you have trouble with day-to-day activities such as bathing, preparing meals, shopping, managing finances, etc.?: No Are you currently unemployed and looking for a job?: No Are you interested in more education?: No Please select the resources that you would like help with: None Currently or been in a relationship where the following occur: No concerns reported THRIVE Score: 0 AUDIT C Alcohol Use Questionnaire (AUDIT-C) 1. How often do you have a drink containing alcohol?: 2-4 times a month 2. How many drinks containing alcohol do you have on a typical day when you are drinking?: 1 or 2 3. How often do you have six or more drinks on one occasion?: Never Total Score: 2 DHRUV-7 AMB Questionnaire DHRUV-7 Date DHRUV - 7 assessed: 03/21/24 Feeling nervous, anxious, or on edge: 0 = Not at all Not being able to stop or control worryin = Not at all Worrying too much about different things: 0 = Not at all Trouble relaxin = Not at all Being so restless that it is hard to sit still: 0 = Not at all Becoming easily annoyed or irritable: 0 = Not at all Feeling afraid as if something awful might happen: 0 = Not at all Total DHRUV-7 score (0-4 normal; 5-9 mild; 10-14 moderate; 15-21 severe): 0 Source: Developed by Drs. Pipo Tran, Yulia Javed, Joe Townsend and colleagues, with an educational kem from [employer]. DHRUV-7 Assessment Billing DHRUV-7 Assessment Tool: DHRUV-7 Assessment 40004 Physical exam (Primary Care) Vital Signs: Last Vital Signs Pulse 83 03/21/24 10:30 BP 126/82 03/21/24 10:30 Pulse Ox 96 03/21/24 10:30 Oxygen Delivery Method Room Air 03/21/24 10:30 BMI result Body Mass Index 32.4 Tobacco/Smoking Status: Tobacco use Status Tobacco use date assessed 03/21/24 03/21/24 10:33 Patient Tobacco Use Status Former Tobacco user 03/21/24 10:33 e-Cigarette/Vaping Use Never Used 03/21/24 10:33 PHQ-9: PHQ-9 Score PHQ-9: Total score 2 03/21/24 11:08 Depression Screening Interpretation: Negative Thrive Assessment: Date of Thrive Assessment Date Thrive assessed 03/21/24 03/21/24 10:33 Currently or been in a relationship where the following occur: No concerns reported Coding Level of Care Code Est Pt Prev Care >65y(70999) Diagnoses Physical exam Z00.00 Fatigue R53.83 Smoking F17.200 Additional Codes PHQ-9 - 87193 - PHQ-9 Billing: Yes ([id number]) DHRUV-7 Assessment Billing - DHRUV-7 Assessment Tool: DHRUV-7 Assessment 14295 ([id number]) Assessment & Plan Assessment & Plan (1) Physical exam: Code(s): Z00.00 - Encounter for general adult medical examination without abnormal findings Category: Medical (2) Fatigue: Code(s): R53.83 - Other fatigue Category: Medical (3) Smoking: Code(s): F17.200 - Nicotine dependence, unspecified, uncomplicated Category: Social Hx Plan . Orders: Orders Complete Blood Count Auto Diff Today Z00.00 - Encounter for general adult medical examination without abnormal findings TSH reflex Free T4 Today Z00.00 - Encounter for general adult medical examination without abnormal findings Lipid Panel Today Z00.00 - Encounter for general adult medical examination without abnormal findings Testosterone, Free/Total Today R53.83 - Other fatigue Comprehensive Entriken. Panel Fast Today Z00.00 - Encounter for general adult medical examination without abnormal findings UA CC w/rflx Micro + Cult Today Z00.00 - Encounter for general adult medical examination without abnormal findings Referrals Lung Cancer Screening Referral F17.200 - Nicotine dependence, unspecified, uncomplicated Medications: Refilled betamethasone valerate 0.1% 1 appl topical BID PRN 45 grams 3RF skin irritation betamethasone valerate 0.1% 1 appl topical BID PRN 45 grams 3RF skin irritation
[2024-03-21 10:30] VITALS: BP 126/82; PULSE 83; O2SAT 96; BMI 32.4
== END 2024-03-21 11:32 | disposition home or self-care (01) ==
PROVIDERS: PCP Nurse Practitioner Family; Visit Provider Nurse Practitioner Family
DX: Z00.00 Encounter for general adult medical examination without abnormal findings (principal); R53.83 Other fatigue; F17.200 Nicotine dependence, unspecified, uncomplicated

== ENCOUNTER → 2024-03-21 10:19 | Outpatient (BNVA) | payer BC, SELFPAY | PROVIDERS: PCP Nurse Practitioner Family; Visit Provider Nurse Practitioner Family | DX: Z00.00 Encounter for general adult medical examination without abnormal findings (principal); R53.83 Other fatigue; F17.200 Nicotine dependence, unspecified, uncomplicated | CPT/HCPCS: 96127 ==

== ENCOUNTER 2024-03-25 06:40 | Outpatient (REF) | payer OTHER, SELFPAY ==
[2024-03-25 10:51] LABS: MANUAL DIFF FLAG NO
[2024-03-25 10:54] LABS: Appearance Urine Turbid; Color Urine Yellow; Glucose Urine UA Negative (Negative); Leukocyte Esterase Urine Negative (Negative); Nitrite Urine Negative (Negative); PH 5.5 (5.0-9.0); Urine Blood Negative (Negative); Urine Ketones Negative (Negative); Urine Protein Negative (Neg-Trace)
[2024-03-25 11:01] LABS: Basophils Percent Auto 0.5 % (0-2); Eosinophils Absolute Auto 0.1 X10*3/uL (0.0-0.4); Eosinophils Percent Auto 1.1 % (0-4); Hematocrit 47.6 % (42.0-52.0); Hemoglobin 16.4 g/dl (14.0-18.0); Imm Gran Abs Auto 0.02 X10*3/uL (0.00-0.03); Imm Gran Pct Auto 0.3 % (0.0-0.4); Lymphocytes Absolute Auto 2.6 X10*3/uL (1.2-4.9); Lymphocytes Percent Auto 41.6 % (20-40); Mean Corpuscular HGB Conc 34.5 g/dl (31.0-36.0); Mean Corpuscular Hemoglobin 30.1 pg (27.0-33.0); Mean Corpuscular Volume 87.5 fL (80.0-98.0); Mean Platelet Volume 10.8 fL (9.4-12.4); Monocytes Absolute Auto 0.5 X10*3/uL (0.1-1.2); Neutrophils Absolute Auto 3.1 x10*3/uL (2.0-8.3); Neutrophils Percent Auto 48.5 % (45-73); Platelet Count 269 X10*3/uL (160-400); Red Blood Count 5.44 X10*6/uL (4.60-5.80); Red Cell Distribution Width 12.4 % (11.0-16.0); White Blood Count 6.4 X10*3/uL (4.8-10.8)
[2024-03-25 11:30] LABS: Alanine Aminotransferase 52 U/L (0-40); Alkaline Phosphatase 78 U/L (39-117); Anion Gap 9 (12-20); Aspartate Amino Transferase 32 U/L (5-37); Bilirubin Total 0.8 mg/dL (0.0-1.0); Blood Urea Nitrogen 10 mg/dL (9-16); Calcium 8.8 mg/dL (8.4-10.2); Carbon Dioxide 27 mmol/L (22-29); Chloride 105 mmol/L (96-108); Cholesterol 284 mg/dL (<200); Estimated Glomerular Filt Rate > 60; Glucose Fasting 90 mg/dL (60-99); HDL Cholesterol 45 mg/dL (>40); LDL Cholesterol Calculated 192 mg/dL (<100); Sodium 137 mmol/L (135-145); Total Protein 7.4 g/dL (6.5-8.0); Triglycerides 239 mg/dL (<150)
[2024-03-25 11:46] LABS: TSH reflex Free T4 0.53 uIU/mL (0.32-4.0)
[2024-04-01 16:28] LABS: Testosterone, Free 32.9 pg/mL (35.0-155.0); Testosterone, Total 185 ng/dL (250-1100)
== END 2024-03-25 06:41 | disposition home or self-care (01) ==
LOC: HO.HMGCLDS 06:40
PROVIDERS: PCP Nurse Practitioner Family; Visit Provider Nurse Practitioner Family
DX: Z00.00 Encounter for general adult medical examination without abnormal findings (principal); R53.83 Other fatigue
CPT/HCPCS: 36415; 80053; 80061; 81003; 84402; 84403; 84443; 85025

== ENCOUNTER 2024-04-19 09:19 | Outpatient (REF) | payer OTHER, SELFPAY ==
--- OUTSIDE RECORDS SUMMARY | 2024-04-19 10:10 | XMS_ITS ---
[facility] Organization [facility] Address [address] [place] [address] Care Team Providers Care Drop Board Man Name Role Phone Nic Enriquez Primary Care Provider Unav ailable Black, Hayde Unavailable [phone] REASON FOR VISIT cx 12/29 Encounters Encounter Location Date Provider Diagnosis [facility] [address] [place] [address] 12/10/2022 Hayde Black Plan Of Treatment No Information Progress Notes * Mateus ORRDOB: [birth year] (67 yo M)Acc No.[id number]:12/10/2022 Patient:?KirbyMateus :1955???Age:67 Y???Sex:Male Address:[address] [place] [address], [address] * true * Date:? Generated for Printi ng/Faxing/eTransmitting on:?04/19/2024 10:09 AM EST
--- OUTSIDE RECORDS SUMMARY | 2024-04-19 10:10 | XMS_ITS | Patient Health Record ---
[facility] Address [address] [place] [address] Care Team Providers Care Community Relations Coordinator Name Role Phone Nic Enriquez Primary Care Provider Unav ailable Black, Hayde Unavailable [phone] Allergies Allergen (clinical drug ingredient) Drug/Non Drug Allergy documented on EMR Reaction Allergy Type Onset Date Status Substance with 3-hnecfjt-5-methylglut aryl-coenzyme A reductase inhibitor mechanism of action [...] Coverage End Date Carelink [address] [place] [address] [id number] Mateus Orr Self - patient is the insured Medical (General) History Medical History History ICD Code covid-19 Psoriasis/eczema thyroid Measles Mumps Chicken pox Surgical History Surgery Date(Month/Year)
[2024-04-19 13:57] LABS: Thyroid Stimulating Hormone 0.23 uIU/mL (0.32-4.0)
[2024-04-20 09:28] LABS: Triiodothyronine T3 Free 3.3 pg/mL (2.3-4.2)
== END 2024-04-19 09:20 | disposition home or self-care (01) ==
LOC: HO.HMGCLDS 09:19
PROVIDERS: PCP Nurse Practitioner Family; Visit Provider Emergency Medicine
DX: E03.9 Hypothyroidism, unspecified (principal)
CPT/HCPCS: 36415; 84439; 84443; 84481

== ENCOUNTER 2024-04-26 08:08 | Outpatient (REF) | payer OTHER, SELFPAY ==
[2024-04-26 10:58] LABS: Iron 102 mcg/dL (45-160); Percent Iron Saturation 32 % (15-50); Total Iron Binding Capacity 316 mcg/dL (228-428); Unsaturated Iron Binding 214 ug/dL
[2024-04-26 11:10] LABS: Cortisol Random 17.6 ug/dL
[2024-04-26 11:19] LABS: Ferritin 203 ng/mL (20-250)
[2024-04-27 07:24] LABS: Follicle Stimulating Hormone 9.2 mIU/mL (1.4-12.8); Lutenizing Hormone 7.3 mIU/mL (1.6-15.2); Prolactin 10.7 ng/mL (2.0-18.0)
[2024-05-03 15:52] LABS: Testosterone, Free 58.1 pg/mL (35.0-155.0); Testosterone, Total 361 ng/dL (250-1100)
== END 2024-04-26 08:09 | disposition home or self-care (01) ==
LOC: HO.HMGCLDS 08:08
PROVIDERS: PCP Nurse Practitioner Family; Visit Provider Emergency Medicine
DX: E29.9 Testicular dysfunction, unspecified (principal)
CPT/HCPCS: 36415; 82533; 82728; 83001; 83002; 83540; 84146; 84402; 84403

== ENCOUNTER 2024-05-30 08:00 | Outpatient (REF) | payer MEDICARE, SELFPAY ==
--- OUTSIDE RECORDS SUMMARY | 2024-05-30 08:06 | XMS_ITS | Clinical Summary ---
Author Organization [facility] Address [address] [place] [address] Care Team Providers Care Clay House Worker Name Role Phone Unavailable Primary Care Provider Unavailabl e Social History Tobacco Use Types Packs/Day Years Used Date Smoking Tobacco: Never Assessed Sex and Gender Information Value Date Recorded Sex Assigned at Not on file Legal Sex Male 10:00 PM EDT Gender Identity Not on file Sexual Orientation Not on file Plan of Treatment Health Maintenance Due Date Last Done Comments Hepatitis C Screening 1955 DTaP/Tdap/Td (1 - Tdap) 1975 Pneumococcal 50+ years (1 of 1 - PCV) 2007 Zoster (Shingrix) (1 of 2) 2007 COVID-19 Vaccine ( - 2023-2 5 season) 2023 Influenza (#1) 2023 RSV (1 - 1-dose 75+ series) 02/19/2032 Abdominal Aorta Imaging Discontinued HPV Vaccine Aged Out No longer eligi ble based on patient's age to complete this topic Hep A Aged Out No longer eligi ble based on patient's age to complete this topic Hep B Aged Out No longer eligi ble based on patient's age to complete this topic Hib Aged Out No longer eligi ble based on patient's age to complete this topic Meningococcal ACWY Aged Out No longer eligible based on patient's age to complete this topic Zoster (Zostavax) Discontinued
--- OUTSIDE RECORDS SUMMARY | 2024-05-30 08:06 | XMS_ITS ---
Author Organization [facility] Address [address] [place] [address] Care Team Providers Care Barker Peeler Name Role Phone Nic Enriquez Primary Care Provider Unav ailable Hayde López Unavailable [phone] REASON FOR VISIT cx Encounters Encounter Location Date Provider Diagnosis [facility] [address] [place] [address] 12/29/2022 Hayde López Plan Of Treatment No Information Progress Notes * Mateus ARBOLEDADOB: [birth year] (69 yo M)Acc No.[id number]:12/29/2022 Progress Note Patient:Mateus CORREA Provider:?Hayde López DPM :1955???Age:67 Y???Sex:Male Truong e:12/29/2022 Address:[address] [place] [address] [id number] Pcp:QUINN Jones Subjective: * Chief Complaints: * [...] López DPM Date:?2022 Generated for Shoshana holm/Ambreen/Bessie on:?05/30/2024 08:06 AM EST
--- OUTSIDE RECORDS SUMMARY | 2024-05-30 08:06 | XMS_ITS ---
Author Name [facility] Organization Unknown History of Medication Use Medication Directions Dispensed Refills Start Date End Date Stat levothyroxine (tablet) 150 mcg c ompleted
--- OUTSIDE RECORDS SUMMARY | 2024-05-30 08:07 | XMS_ITS | Patient Health Record ---
[facility] Address [address] [place] [address] Care Team Providers Care Graphite Pan Drier Tender Name Role Phone Nic Enriquez Primary Care Provider Unav ailable Black, Hayde Unavailable [phone] Allergies Allergen (clinical drug ingredient) Drug/Non Drug Allergy documented on EMR Reaction Allergy Type Onset Date Status Substance with 1-vjhhydh-6-methylglut aryl-coenzyme A reductase inhibitor mechanism of action [...] Coverage End Date Carelink [address] [place] [address] [phone] Mateus Orr Self - patient is the insured Medical (General) History Medical History History ICD Code covid-19 Psoriasis/eczema thyroid Measles Mumps Chicken pox Surgical History Surgery Date(Month/Year)
--- OUTSIDE RECORDS SUMMARY | 2024-05-30 08:07 | XMS_ITS ---
Author Organization [facility] Address [address] [place] [address] Care Team Providers Care Farm Machine Tender Name Role Phone Nic Enriquez Primary Care Provider Unav ailable Black, Hayde Unavailable [phone] REASON FOR VISIT cx 12/29 Encounters Encounter Location Date Provider Diagnosis [facility] [address] [place] [address] 12/10/2022 Hayde Black Plan Of Treatment No Information Progress Notes * Mateus ORRDOB: [birth year] (67 yo M)Acc No.[id number]:12/10/2022 Patient:?KirbyMateus :1955???Age:67 Y???Sex:Male Address:[address] [place] [address], [address] * true * Date:? Generated for Printi ng/Faxing/eTransmitting on:?05/30/2024 08:06 AM EST
[2024-05-30 10:27] LABS: MANUAL DIFF FLAG NO
[2024-05-30 10:45] LABS: Basophils Absolute Auto 0.1 X10*3/uL (0.0-0.2); Basophils Percent Auto 0.8 % (0-2); Eosinophils Absolute Auto 0.1 X10*3/uL (0.0-0.4); Eosinophils Percent Auto 1.1 % (0-4); Hematocrit 48.9 % (42.0-52.0); Hemoglobin 16.4 g/dl (14.0-18.0); Imm Gran Abs Auto 0.03 X10*3/uL (0.00-0.03); Imm Gran Pct Auto 0.5 % (0.0-0.4); Lymphocytes Absolute Auto 2.8 X10*3/uL (1.2-4.9); Lymphocytes Percent Auto 44.6 % (20-40); Mean Corpuscular HGB Conc 33.5 g/dl (31.0-36.0); Mean Corpuscular Hemoglobin 29.5 pg (27.0-33.0); Mean Corpuscular Volume 87.9 fL (80.0-98.0); Mean Platelet Volume 10.6 fL (9.4-12.4); Monocytes Absolute Auto 0.4 X10*3/uL (0.1-1.2); Monocytes Percent Auto 6.6 % (2-11); Neutrophils Absolute Auto 2.9 x10*3/uL (2.0-8.3); Neutrophils Percent Auto 46.4 % (45-73); Platelet Count 279 X10*3/uL (160-400); Red Blood Count 5.56 X10*6/uL (4.60-5.80); Red Cell Distribution Width 12.6 % (11.0-16.0); White Blood Count 6.2 X10*3/uL (4.8-10.8)
[2024-05-30 11:26] LABS: Alanine Aminotransferase 53 U/L (0-40); Albumin Level 4.1 g/dL (3.5-5.0); Alkaline Phosphatase 85 U/L (39-117); Anion Gap 12 (12-20); Aspartate Amino Transferase 33 U/L (5-37); Bilirubin Direct 0.2 mg/dL (0.0-0.5); Bilirubin Total 0.6 mg/dL (0.0-1.0); Blood Urea Nitrogen 10 mg/dL (9-16); Calcium 9.2 mg/dL (8.4-10.2); Carbon Dioxide 25 mmol/L (22-29); Chloride 106 mmol/L (96-108); Cholesterol 283 mg/dL (<200); Estimated Glomerular Filt Rate > 60; Glucose Random 97 mg/dL (60-115); HDL Cholesterol 50 mg/dL (>40); LDL Cholesterol Calculated 200 mg/dL (<100); Potassium 4.2 mmol/L (3.3-5.1); Sodium 139 mmol/L (135-145); Total Protein 7.8 g/dL (6.5-8.0); Triglycerides 168 mg/dL (<150)
[2024-05-30 11:37] LABS: HBc Num1 0.11 S/CO (0.00-0.79); HBsAGNum1 0.33 S/CO (0.00-0.99); Hepatitis B Core Antibody Nonreactive (Nonreactive); Hepatitis B Surface Antigen Negative (Negative); ~HepC Num1 0.08 S/CO (0.00-0.79); ~Hepatitis B Surface Antibody NONREACTIVE (Nonreactive); ~Hepatitis C Antibody Nonreactive (Nonreactive)
[2024-06-02 12:54] LABS: TS Negative Control Passed; TS Panel A 1; TS Panel B 0; TS Positive Control Passed; TSpotTB Negative (Negative)
== END 2024-05-30 08:01 | disposition home or self-care (01) ==
LOC: HO.HMGCLDS 08:00
PROVIDERS: PCP Nurse Practitioner Family; Visit Provider Physician Assistant
DX: L40.0 Psoriasis vulgaris (principal); Z79.899 Other long term (current) drug therapy
CPT/HCPCS: 36415; 80048; 80061; 80076; 85025; 86481; 86704; 86706; 86803; 87340

== ENCOUNTER 2024-10-06 09:50 | Outpatient (AMB) | payer OTHER, SELFPAY ==
[2024-10-06 09:53] VITALS: BP 122/78; PULSE 86; O2SAT 98; BMI 32.8
--- NOTE | 2024-10-06 09:53 | A.OFFPC_ITS ---
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 Required: No Accompanied by: Self / Same As Patient Allergies Lntoqrt-RCL-RzE Reductase Inhibitor (Boqwxvo-Nsm-Cnl Reductase Inhibitor) Adverse Reaction (Mild, Verified 10/06/24 09:54) joint pains Medication List - Last Reconciled 10/06/24 by Nic Willoughby, LICENSED [employer]-BC betamethasone valerate 0.1% 1 appl topical BID PRN levothyroxine 112 mcg PO DAILY risankizumab-rzaa (Skyrizi) mg subcut Tobacco use date assessed: 10/06/24 Fall risk assessment: No Falls in past year Last assessed Fall Risk: 10/06/24 Dental Screening Dental Screen Date: 10/06/24 Did you have a dental visit in the last 12 months?: Yes Did you have a dental problem in the last 6 months where you did not have access to dental care?: No Was dental information given to patient?: Patient has dentist HPI 6 months follow up HPI Details Chief Complaint The patient presents for management of hypertension and preventative care. History of Present Illness The patient is a 69-year-old male presenting with hypertension management and preventative care. Hypertension has been stable with no reported episodes of chest pain or increased dyspnea. The patient has a history of smoking but quit five years ago and was undergoing low dose CT scans for lung cancer screening through [facility]. He would like to go to [place] for continued screenings, will refer. Pt is NOT interested in a colonoscopy, but will perform a cologuard, will place this order in. Social History - Smoking: Quit five years ago Health Maintenance - Lung cancer screening with low dose CT scans due to smoking history Review of Systems - Cardiovascular: Denies chest pain - Respiratory: Denies increased dyspnea - Gastrointestinal: Denies abdominal skylar n, blood in stool, constipation, diarrhea - Neurological: Denies headaches, dizzin ess, blurred vision Physical Exam General: Cooperative, healthy appearing, comfortable, no acute distress and well developed Orientation: Patient oriented x3 Limitations: No limitations Head: Normal to inspection Ears: Hearing grossly normal bilaterally Nose: Normal external nose present Face and sinus: Normal facial exam Eyes: Appearance normal, both eyes and all related structures Neck: Normal visual inspection and Yes full ROM Respiratory: Normal respiratory effort and able to speak in complete sentences. Clear to auscultation bilaterally Cardiovascular: Regular rate and rhythm. S1 and S2 were fairly clear bilaterally GI: Normal to inspection. Soft to palpation and nontender Skin: No rashes or lesions noted Neuro: Patient oriented x3 Extremities: Normal to inspection Results Plan The plan includes continuing to monitor the patient's blood pressure to ensure it remains stable. Additional laboratory tests, including lipid panels, will be conducted to assess cardiovascular risk factors. The patient will continue with low dose CT scans for lung cancer screening due to his smoking history. Discussion Notes I discussed with the patient the importance of maintaining stable blood pressure and the role of regular monitoring. We also talked about the need for lipid panels to evaluate cardiovascular health and the continuation of lung cancer screening with low dose CT scans due to his past smoking history. EKG: will order a echo Patient Instructions - Continue monitoring your blood pressur e regularly. - Follow up with the lab for lipid panel tests. - Continue with low dose CT scans for yann ng cancer screening. PFSH Medical History Fatty liver Elevated hemidiaphragm Body aches Surgical History No pertinent past surgical history Family History Father Diabetes Social History Housing: House Patient Tobacco Use Status: Former Tobacco user Years Smoked: quit smoking x1 month e-Cigarette/Vaping Use: Never Used Second Hand Smoke Exposure: No service: Yes Current occupational status: employed Current occupation: [employer] Current occupational exposures/hazards: No Cognitive needs: No Hearing needs: No Vision needs: No Questionnaire PHQ-9 Over the last 2 weeks, how often have you been bothered by any of the following problems? 1. Little interest or pleasure in doing things: not at all 2. Feeling down, depressed, or hopeless: not at all 3. Trouble falling or staying asleep, or sleeping too much: not at all 4. Feeling tired or having little energy: not at all 5. Poor appetite or overeating: not at all 6. Feeling bad about yourself - or that you are a failure or have let yourself or your family down: not at all 7. Trouble concentrating on things, such as reading the newspaper or watching television: not at all 8. Moving or speaking so slowly that other people could have noticed. Or the opposite - being so fidgety or restless that you have been moving around a lot more than usual: not at all 9. Thoughts that you would be better off or of hurting yourself in some way: not at all Total score: 0 Depression Screening Interpretation: Negative Depression Screening Done: Yes 42520 - PHQ-9 Billing: Yes Source: Developed by Drs. Pipo Tran, Yulia Javed, Joe Townsend and colleagues, with an educational kem from [employer]. Thrive Questionnaire Date Thrive assessed: 10/06/24 I am a: Patient What is your living situation today?: I have a steady place to live Within the past 12 months, did the food you bought not last and you didn't have the money to get more?: I choose not to answer this question Within the past 12 months, did you worry whether your food would run out before you got money to buy more?: I choose not to answer this question Do you have trouble paying for medicines?: I choose not to answer this question Do you have trouble getting transportation to medical appointments?: I choose not to answer this question Do you have trouble paying your heating and electricity bill?: I choose not to answer this question Do you have trouble taking care of your child, family member or friend?: I choose not to answer this question Do you have trouble with day-to-day activities such as bathing, preparing meals, shopping, managing finances, etc.?: I choose not to answer this question Are you currently unemployed and looking for a job?: I choose not to answer this question Are you interested in more education?: I choose not to answer this question Please select the resources that you would like help with: None Currently or been in a relationship where the following occur: I choose not to answer THRIVE Score: 0 AUDIT C Alcohol Use Questionnaire (AUDIT-C) 1. How often do you have a drink containing alcohol?: Monthly or less 2. How many drinks containing alcohol do you have on a typical day when you are drinking?: 1 or 2 3. How often do you have six or more drinks on one occasion?: Less than monthly Total Score: 2 Score Reviewed/Action Taken: Yes DHRUV-7 AMB Questionnaire DHRUV-7 Date DHRUV - 7 assessed: 10/06/24 Feeling nervous, anxious, or on edge: 0 = Not at all Not being able to stop or control worryin = Not at all Worrying too much about different things: 0 = Not at all Trouble relaxin = Not at all Being so restless that it is hard to sit still: 0 = Not at all Becoming easily annoyed or irritable: 0 = Not at all Feeling afraid as if something awful might happen: 0 = Not at all Total DHRUV-7 score (0-4 normal; 5-9 mild; 10-14 moderate; 15-21 severe): 0 Source: Developed by Drs. Pipo Tran, Yulia Javed, Joe Townsend and colleagues, with an educational kem from [employer]. DHRUV-7 Assessment Billing DHRUV-7 Assessment Tool: DHRUV-7 Assessment 88990 Physical exam (Primary Care) Vital Signs: Last Vital Signs Pulse 86 10/06/24 09:53 BP 122/78 10/06/24 09:53 Pulse Ox 98 10/06/24 09:53 Oxygen Delivery Method Room Air 10/06/24 09:53 BMI result Body Mass Index 32.8 Tobacco/Smoking Status: Tobacco use Status Tobacco use date assessed 10/06/24 10/06/24 09:55 Patient Tobacco Use Status Former Tobacco user 10/06/24 09:55 e-Cigarette/Vaping Use Never Used 10/06/24 09:55 PHQ-9: PHQ-9 Score PHQ-9: Total score 0 10/06/24 09:55 Depression Screening Interpretation: Negative Thrive Assessment: Date of Thrive Assessment Date Thrive assessed 10/06/24 10/06/24 09:55 Currently or been in a relationship where the following occur: I choose not to answer Coding Level of Care Code Est Pt Level 3 (15506) Diagnoses HTN (hypertension) I10 Dyslipidemia E78.5 Screening PSA (prostate specific antigen) Z12.5 Smoking F17.200 Additional Codes DHRUV-7 Assessment Billing - DHRUV-7 Assessment Tool: DHRUV-7 Assessment 75161 ([id number]) PHQ-9 - 71295 - PHQ-9 Billing: Yes ([id number]) Assessment & Plan Assessment & Plan (1) HTN (hypertension): Code(s): I10 - Essential (primary) hypertension Category: Medical (2) Dyslipidemia: Code(s): E78.5 - Hyperlipidemia, unspecified Category: Medical (3) Screening PSA (prostate specific antigen): Code(s): Z12.5 - Encounter for screening for malignant neoplasm of prostate Category: Medical (4) Smoking: Code(s): F17.200 - Nicotine dependence, unspecified, uncomplicated Category: Social Hx Plan . Orders: Orders Complete Blood Count Auto Diff Today E78.5 - Hyperlipidemia, unspecified, I10 - Essential (primary) hypertension Comprehensive [place]. Panel Fast Today E78.5 - Hyperlipidemia, unspecified, I10 - Essential (primary) hypertension UA CC w/rflx Micro + Cult Today E78.5 - Hyperlipidemia, unspecified, I10 - Essential (primary) hypertension Lipid Panel Today E78.5 - Hyperlipidemia, unspecified, I10 - Essential (primary) hypertension TSH reflex Free T4 Today E78.5 - Hyperlipidemia, unspecified, I10 - Essential (primary) hypertension Prostate Specific Antigen Scr Today Z12.5 - Encounter for screening for malignant neoplasm of prostate AMB EKG-In Office Today E78.5 - Hyperlipidemia, unspecified, F17.200 - Nicotine dependence, unspecified, uncomplicated, I10 - Essential (primary) hypertension CA echo transthoracic complete Today E78.5 - Hyperlipidemia, unspecified, I10 - Essential (primary) hypertension, R94.31 - Abnormal electrocardiogram [ECG] [EKG] Referrals Lung Cancer Screening Referral F17.200 - Nicotine dependence, unspecified, uncomplicated Cologuard Test Z12.11 - Encounter for screening for malignant neoplasm of colon, Z12.12 - Encounter for screening for malignant neoplasm of rectum
--- OUTSIDE RECORDS SUMMARY | 2024-10-06 10:25 | XMS_ITS | Patient Health Record ---
[facility] Address [address] [place] [address] Care Team Providers Care Sales Order Clerk Name Role Phone Nic Enriquez Primary Care Provider Unav ailable Black, Hayde Unavailable [phone] Allergies Allergen (clinical drug ingredient) Drug/Non Drug Allergy documented on EMR Reaction Allergy Type Onset Date Status Substance with 4-lbmypzx-6-methylglut aryl-coenzyme A reductase inhibitor mechanism of action (substance) Statins joint pain Drug Allergy Active Reason For Referral No Information Medications Medication SIG (Take, Route, Frequency, Duration) Notes Start Date End Date Status Feldene 20 MG 1 capsule with food Orally Once a day; Duration: 30 days 08/25/2022 Active Nightsplint . . . AFO - L1930; Duration: . Active Levothyroxine Sodium 200 MCG 1 tablet in the morning on an empty stomach Orally Once a day; Duration: 30 day(s) Active Colesevelam HCl 625 MG 2 tablets Orally Twice a day WelChol Active Compression Stockings 20-30mm Hg 1 pair wear daily; Duration: 30 days Active Social History Tobacco Use: [...] Coverage End Date Carelink [address] [place] [address] [id number] Mateus Orr Self - patient is the insured Medical (General) History Medical History History ICD Code covid-19 Psoriasis/eczema thyroid Measles Mumps Chicken pox Surgical History Surgery Date(Month/Year)
--- OUTSIDE RECORDS SUMMARY | 2024-10-06 10:25 | XMS_ITS | Clinical Summary ---
Author Organization [facility] Address [address] [place] [address] Care Team Providers Care Farmworker Rice Name Role Phone Unavailable Primary Care Provider [...] - 2023-2 5 season) 2023 Influenza (#1) 2024 RSV (1 - 1-dose 75+ series) 02/19/2032 [...]
--- OUTSIDE RECORDS SUMMARY | 2024-10-06 10:26 | XMS_ITS ---
Author Name [facility] Organization Unknown History of Medication Use Medication Directions Dispensed Refills Start Date End Date Stat levothyroxine (tablet) 150 mcg c ompleted Encounters Encounter Type Encounter Reason [facility] Organization Name Specialty Phone Email Start Date End [facility]
== END 2024-10-06 10:45 | disposition home or self-care (01) ==
LOC: HO.HMCC 09:51
PROVIDERS: PCP Nurse Practitioner Family; Visit Provider Nurse Practitioner Family
DX: I10 Essential (primary) hypertension (principal); E78.5 Hyperlipidemia, unspecified; Z12.5 Encounter for screening for malignant neoplasm of prostate; F17.200 Nicotine dependence, unspecified, uncomplicated

== ENCOUNTER → 2024-10-06 09:50 | Outpatient (BNVA) | payer OTHER, SELFPAY | PROVIDERS: PCP Nurse Practitioner Family; Visit Provider Nurse Practitioner Family | DX: I10 Essential (primary) hypertension (principal); E78.5 Hyperlipidemia, unspecified; Z87.891 Personal history of nicotine dependence | CPT/HCPCS: 96127 ==